=== PATIENT | male | born 1935 | race Caucasian/White ===

== ENCOUNTER 2016-05-28 08:38 | Inpatient (IN) | payer MEDICARE, OTHER ==
[2016-05-28] VITALS (12 sets, daily range): BP systolic 101–142; BP diastolic 63–81; PULSE 98–127; RESP 16–30; O2SAT 89–95
[~2016-05-28] VITALS: Ht 175.3 cm; Wt 75.2 kg
[~2016-05-28 08:38] MED LIST: AMLO5TAB2 PO; ASPI81TA3 PO; ATOR40TA69 PO; CARV6.25 PO; CLOP75TA28 PO; FURO40TA4 PO; HYDR-3938 PO; ISOS20TA7 PO
--- NOTE | 2016-05-28 08:38 | ED.REPORT ---
HPI-Dyspnea / Wheezing Date of Service May 28, 2016 ED Provider: Nasim Lozano DO 80 year old male with a history of CHF, COPD, CAD, NSTEMI, HTN, and sleep apnea presents to the ER via EMS due to acute on chronic shortness of breath onset just prior to arrival. Medics report that they found the patient in respiratory distress with O2 saturation in the low 80's, and tripoding at home. NTG and morphine given en route. Patient denies chest pain, fever, and chills. Associated productive cough for the past "couple days". Lately he also admits to decreased oral intake. He states that he gets recurrent "cedar allergies" annually around this time of year that elicit similar symptoms. Nursing Notes Stated Complaint: RESPIRATORY DISTRESS Nursing Notes Reviewed: Yes Allergies: Coded Allergies: povidone-iodine (Verified Allergy, Severe, Hives, 01/02/15) soap (Verified Allergy, Severe, Hives, 01/02/15) Contrast Media (Verified Adverse Reaction, Severe, 06/25/14) required dialysis to clear it. clonidine (Verified Adverse Reaction, Unknown, Dizziness, insomnia, pale, Depression, 06/25/14) Scheduled Amlodipine (Amlodipine) 5 Mg Tablet 5 MG PO BID Aspirin Chew (Aspirin Chew) 81 Mg Tab.chew 81 MG PO every other day Atorvastatin Calcium (Atorvastatin Calcium) 40 Mg Tablet 40 MG PO DAILY Carvedilol (Coreg) 6.25 Mg Tablet 3.125 MG PO DAILY Clopidogrel (Clopidogrel) 75 Mg Tablet 75 MG PO every other day Furosemide (Furosemide) 40 Mg Tablet 40 MG PO DAILY Hydralazine (Hydralazine) 10 Mg Tablet 25 MG PO TID Isosorbide DN (Isosorbide DN) 20 Mg Tablet 2 TAB PO BID Losartan Potassium (Losartan Potassium) 25 Mg Tablet 25 MG PO DAILY General Time Seen by MD: 08:38 Chief Complaint Shortness of breath Hx Obtained From: Patient, EMS Arrived By: Ambulance Sudden in Onset?: No Onset Occurred: Just prior to arrival Symptom Duration: Since onset Associated with: Reports: Cough, Denies: Chest pain, Fever Pertinent Negative: Pt denies other symptoms Context Related History: Reports: COPD, Congestive heart failure, Coronary artery disease Similar Sx Previous: Yes Risk Factors CAD Risk Stratification Hypertension Known CAD Risk factors reviewed Past Medical History Past Medical History NSTEMI (2013) Acute renal failure Heart murmur Heart burn Hemorrhoids Reports: COPD, Congestive heart failure, Diabetes mellitus, GERD, Hypertension Past Surgical History 2 stents Reports: Cataract surgery Reports: Tubal ligation Smoking History Former Smoker Social History Alcohol Use: Denies alcohol use Drug Use: Denies drug use Other Social History: Review of Systems Constitutional: Denies: Chills, Fever Respiratory: Reports: Prod cough, clear, Shortness of breath Cardiovascular: Denies: Chest pain Musculoskeletal: Denies: Back pain, Extremity pain, Neck pain Skin: Denies Diaphoresis Complete sys rev & neg: except as marked. Physical Exam Initial Vital Signs Vital Signs (First) Date Time Temp Pulse Resp B/P Pulse Ox O2 Delivery O2 Flow Rate FiO2 05/28/16 08:43 36.1 127 30 101/78 89 Nasal Cannula 10 05/28/16 09:04 30 Initial VS: Reviewed Head / Eyes: Atraumatic, Normocephalic Abdomen / GI: Soft, Non-tender, No guarding, No rebound, No distention Extremities: Vascular intact, Neuro intact, No swelling, No tenderness Skin: Warm, Dry, No cyanosis Neurologic: Alert, Oriented, Nonfocal Psychiatric: Mood/affect normal, Behavior normal, Normal thought content General/Constitutional: Awake, Alert, Well developed, Well nourished Neck: Atraumatic, Supple, No meningismus, Full range of motion, No swelling, Non-tender, No masses Neck Vascular: Positive: JVD moderate Respiratory / Chest: No wheezing, No stridor Rales / Rhonchi: Positive: Rales diffuse, Rhonchi diffuse Tachypneic. Heart Rate / Rhythm: Positive: Irreg irregular rhythm, Tachycardia Trace lower extremity edema, bilaterally. Interpretation & Diagnostics Lab Results Interpretation Result Diagram: 05/28/16 1003 05/28/16 1003 Test 05/28/16 10:03 White Blood Count 17.0th/mm3 (3.8-10.1) Red Blood Count 2.81mil/mm3 (4.40-5.80) Hemoglobin 9.0g/dL (13.8-17.2) Hematocrit 27.0% (41.0-50.0) Mean Corpuscular Volume 96.1fL (81-100) Mean Corpuscular Hemoglobin 32.0pg (27.0-35.0) Mean Corpuscular Hemoglobin Concent 33.3% (32.0-37.0) Red Cell Distribution Width 15.1% (12.3-15.4) Platelet Count 351bil/L (150-400) Neutrophils (%) (Auto) 87.6% (40-74) Lymphocytes (%) (Auto) 2.6% (14-46) Monocytes (%) (Auto) 9.5% (4-12) Eosinophils (%) (Auto) 0% (0-5) Basophils (%) (Auto) 0.1% (0-3) Prothrombin Time 12.0sec (8.1-12.5) Prothromb Time International Ratio 1.12ratio Sodium Level 137mEq/L (134-144) Potassium Level 4.6mEq/L (3.5-5.2) Chloride Level 102mEq/L (97-108) Carbon Dioxide Level 15mmol/L (18-29) Blood Urea Nitrogen 70mg/dL (8-27) Creatinine 2.70mg/dL (0.76-1.27) Estimat Glomerular Filtration Rate 24mL/min (>59) Glucose Level 190mg/dL (60-99) Calcium Level 9.1mg/dL (8.5-10.1) Total Bilirubin 0.9mg/dL (0.0-1.2) Aspartate Amino Transf (AST/SGOT) 16U/L (0-50) Alanine Aminotransferase (ALT/SGPT) 11U/L (0-44) Alkaline Phosphatase 59U/L (25-160) Troponin T 0.031ug/L (0.0-0.011) Pro-B-Type Natriuretic Peptide 39790bc/mL (0-486) Total Protein 7.1g/dL (6.4-8.4) Albumin 4.0g/dL (3.4-5.0) ECG Interpretation ECG Interpretation: Atrial fibrillation, rate 124 LVH 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 Cardiomegaly and moderate vascular congestion may represent pulmonary edema. 2. Prominent perihilar airspace disease (left greater than right) is suspicious for pneumonia. However, this appearance may be related to pulmonary edema. Please correlate clinically. 3. Small bilateral effusions and associated basilar atelectasis. Dictated by: Jeffrey Valle M.D. on 05/28/2016 at 8:21 Approved by: Jeffrey Valle M.D. on 05/28/2016 at 8:23 View: Portable, 1 view Interpretation / Wet Read by: Interpret - Radiologist Re-Eval/Medical Decision Med Decision/Clinical Course Hypoxic respiratory failure likely combination of pneumonia and CHF and COPD. Patient is placed on BiPAP shortly after arrival to the ER as he is severely tachypneic and hypoxic. He had good symptomatic relief. He is not retaining CO2 significantly. Labs suggest that he is fluid overloaded and may also have pneumonia. Will admit to ICU. Source of Hx: Old records Re-Evaluation/Progress #1: Time of Eval: 09:04 Re-Evaluation/Progress Note: Patient's is now present at bedside. Patient is stabilized on BIPAP. Re-Evaluation/Progress #2: Time of Eval: 09:49 Patient Status: Condition improved Re-Evaluation/Progress Note: Patient reports improved symptoms with BIPAP. Re-Evaluation/Progress #3: Time of Eval: 11:08 Re-Evaluation/Progress Note: Discussed lab and imaging results and need for admission. Patient is amenable to the plan. All other questions addressed. CODE STATUS: DNAR, DNI, ok with BIPAP Consultation : Referral / Consult Name: Trace Sanchez MD Consulted With: Hospitalist Call Returned at: 11:05 Cell Tuber Hand: Agrees with eval, Agrees with plan, Accepts admit Counseled Regarding: Diagnosis, Lab results, Need for admission Discharge & Departure Impression: Primary Impression: Respiratory failure Additional Impression: CHF (congestive heart failure) Disposition: ADMITTED TO HOSPITAL Discharge Condition All VS Reviewed: Yes Condition: Improved Referrals: New Aceves MD (PCP) Crit Care Except Billable Proc Time Spent: 30-74 minutes Services Performed: Patient management by me, Time spent at bedside, Reviewing test results Critical Care Notes: See MDM Scribe Attestation Portions of this note were transcribed by Samir Farris. I, Dr. Lozano, personally performed the history, physical exam and medical decision-making; I reviewed and confirmed the accuracy of the information in the transcribed note. Signed by: Yanira Rosario, 05/28/2016 and 11:09 copies to: New Aceves MD, Timothy S DO May 28, 2016 08:38 SAMIR FARRIS May 28, 2016 08:47
[2016-05-28] MEDS ORDERED: Nitroglycerin 2% 1 Gm Ointment TOPICAL ONE (09:05)
[2016-05-28] MEDS ORDERED: Diltiazem 5 mg/mL 5 mL Inj IVPUSH ONE (09:05)
--- NOTE | 2016-05-28 09:24 | DRSVH ---
PROCEDURE: X-RAY CHEST ONE VIEW, PORTABLE ([id number]) INDICATIONS: dyspnea TECHNIQUE: One view of the chest was acquired. COMPARISON: [facility], CR, XR CHEST 2VW, 01/05/2015, 10:30. [facility], CR , XR CHEST 1VW (PORTABLE), 01/04/2015, 22:13. FINDINGS: Surgical changes and devices: None. Lungs and pleura: There are low lung volumes. Extensive airspace disease is identified throughout jacob th lungs that is more prominent within the left upper lobe and right perihilar region. Blunting of t he costophrenic angles is present with partial obscuration of the bilateral diaphragms. No definite pneumothorax is appreciated. Mediastinum: Mediastinal contours appear normal. Heart size is partially obscured by overlying airs pace disease. However, the heart appears to be enlarged. There is aortic atherosclerosis. Bones and chest wall: No suspicious bony lesions. An old left lateral rib fracture is unchanged. T here is mild dextroconvex curvature of the thoracic spine. There may be a calcified granuloma within the liver. Overlying soft tissues appear unremarkable. IMPRESSION: 1. Cardiomegaly and moderate vascular congestion may represent pulmonary edema. 2. Prominent perihilar airspace disease (left greater than right) is suspicious for pneumonia. English jacquie, this appearance may be related to pulmonary edema. Please correlate clinically. 3. Small bilateral effusions and associated basilar atelectasis. Dictated by: Jeffrey Valle M.D. on 05/28/2016 at 8:21 Approved by: Jeffrey Valle M.D. on 05/28/2016 at 8:23
--- NOTE | 2016-05-28 09:47 | ABG ---
DateTimeAnalyzed 09:44:00 -_ pH ____7.357 - 7.350 7.450 pCO2 ___35.5__ -mmHg 35.0 45.0 pO2 ___63.8__ -mmHg 69.0 116 HCO3- ___19.4__ -mmol/L 22.0 26.0 ABE ___-5.0__ -mmol/L -2.0 2.0 tHb ____9.0__ -g/dL O2Hb ___88.3__ -% COHb ____1.8__ -% MetHb ____1.2__ -% sO2 ___91.0__ -% 25.0 FIO2 ___30.0__ -% CPAP ___10.0__ -cmH2O PEEP ____5.0__ -cmH2O Drawn By JJ - Date/Time Notified____ 09:47:00 -_ Spontaneous_RR ___16.0__ -b/min Oxygen Device 1 ____BIPAP - Notified By JJ - Notified Whom DR OKELLEY - B 758 -mmHg tO2 ___11.2__ -Vol% Trace test _Positive -
[2016-05-28 10:14] LABS: EOSINOPHILS % (AUTO) 0 % (0-5)
[2016-05-28 10:18] LABS: BASOPHILS % (AUTO) 0.1 % (0-3); MONOCYTES % (AUTO) 9.5 % (4-12); Mean Corpuscular Volume 96.1 fL (81-100); NEUTROPHILS % (AUTO) 87.6 % (40-74); Platelet Count 351 bil/L (150-400)
[2016-05-28 10:32] LABS: INR 1.12 ratio
[2016-05-28] MEDS ORDERED: LOSA25TA21 PO (10:39)
[2016-05-28] MEDS ORDERED: cefTRIAXone Inj 2,000 MG in Dextrose 5% Minibag Plus 50 ML IV ONE (10:40)
[2016-05-28] MEDS ORDERED: Azithromycin Inj 500 MG in Dextrose 5% w/Vial Mate 250 ML IV ONE (10:40)
[2016-05-28 10:58] LABS: TROPONIN T 0.031 ug/L (0.0-0.011)
[2016-05-28] MEDS ORDERED: Ondansetron 2 mg/mL 2 mL Inj IVPUSH PRN ×2 (11:10→12:20)
[2016-05-28] MEDS ORDERED: Alum-Mag Hydrox-Simeth 30 mL Suspension PO PRN ×2 (11:10→12:20)
[2016-05-28] MEDS ORDERED: Furosemide 10 mg/mL 4 mL Inj IVPUSH ONE (11:20)
[2016-05-28] MEDS ORDERED: Senna-Docusate 8.6-50 mg Tablet PO PRN (12:20)
[2016-05-28] MEDS ORDERED: Polyethylene Glycol (PEG) 17 Gm Powder PO PRN (12:20)
[2016-05-28] MEDS: cefTRIAXone Inj 2,000 MG in Dextrose 5% Minibag Plus 50 ML IV SCH (12:20)
[2016-05-28 13:30] LABS: Magnesium 2.6 mg/dL (1.6-2.6)
--- NOTE | 2016-05-28 14:46 | DRSVH ---
[facility] [address] [place] [address] Echocardiogram Report Name: NOAH FERRARO DStudy Date: 05/28/2016 Height: 69 in Hospital Exam Location: [facility] Weight: 170 lb Gender: Male BSA: 1.9 m2 : 1935 Age: 80 yrs BP: 133/77 mmHg Reason For Study: Dyspnea Ordering Physician[facility] By: Sergey Moctezuma Referring Physician: CEZAR MATTSON Interpretation Summary The left ventricle is borderline dilated. The ejection fraction is estimated to be 20-25%. There is moderate to severe global hypokinesis of the left ventricle. There is apical severe hypokinesis. The left atrium is severely dilated. The mitral valve leaflets are moderately calcified. The mitral valve mean gradient is 9 mmHg. There is moderate to severe mitral regurgitation. The aortic valve is moderately calcified. Leaflet mobility is moderate to severely reduced. The calculated aortic valve area is 0.85 cm2. There is mild aortic regurgitation. There is moderate tricuspid regurgitation. The right ventricular systolic pressure is estimated at 63 mmHg assuming a right atrial pressure of 15 mm Hg. There are moderate-sized bilateral pleural effusions noted. Compared to prior echo report on 2016, changes are noted. Procedure: A two-dimensional transthoracic echocardiogram with color flow and Doppler was performed. The study quality was technically adequate. Comparison is made with the echocardiogram of 09/04/15. The patient was in atrial fibrillation with heart rates between 89-124 bpm during the exam. Left Ventricle: The left ventricle is borderline dilated. There is mild concentric left ventricular hypertrophy. The ejection fraction is estimated to be 20-25%. Compared to the prior exam, left ventricular function is significantly decreased. There is moderate to severe global hypokinesis of the left ventricle. There is apical severe hypokinesis. Diastolic function could not be accurately assessed due to atrial fibrillation. Atria: The left atrium is severely dilated. The right atrium is moderately dilated. The interatrial septum is intact with no evidence for an atrial septal defect. Mitral Valve: The mitral valve leaflets are moderately calcified. There is moderate to severe mitral annular calcification. The mitral valve mean gradient is 9 mmHg. There is moderate to severe mitral regurgitation. Compared to the prior echo study, there has been an increase in the severity of mitral regurgitation. Aortic Valve: The aortic valve is trileaflet. The aortic valve is moderately calcified. Leaflet mobility is moderate to severely reduced. The peak aortic velocity is 2.8 m/sec. The aortic valve mean gradient is 22 mmHg. The calculated aortic valve area is 0.85 cm2. Compared to the prior echo study, there has been an increase in the severity of aortic stenosis. There is mild aortic regurgitation. Tricuspid Valve: The tricuspid valve is normal. There is moderate tricuspid regurgitation. The right ventricular systolic pressure is estimated at 63 mmHg assuming a right atrial pressure of 15 mm Hg. Pulmonic Valve: The pulmonic valve is not well seen, but is grossly normal. There is a trace or physiologic amount of pulmonic regurgitation. Great Vessels: The aortic root is normal size. The ascending aorta is mildly enlarged. The pulmonary artery is normal size. The IVC is dilated (diameter is greater than 2.1 cm) and it collapses less than 50% with a sniff. This suggests a high right atrial pressure of 15 mm Hg. Pericardium/ Pleura There is no pericardial effusion. There are moderate- sized bilateral pleural effusions noted. MMode/2D Measurements & Calculations LVIDd: 5.7 cm RA long axis: 6.1 cm LVOT diam LVIDs: 4.9 cm LA A2 area: 33.3 cm FS: 13.6 % LA A4 area: 40.6 cm RA area: 24.2 cm Ao root diam EPSS: 2.1 cm LA length (vol): 6.4 cm RA vol: 81.6 ml IVSd: 1.1 cm LA vol: 179.3 ml RA : 42.3 ml/m2 asc Aorta LVPWd: 1.3 cm LA vol index Diam: 3.6 cm IVC diam: 2.5 cm EDV(MOD-sp2) LV lamb. diameter/BSA LV sys. diameter/BSA RVD1 (basal) (cm/m^2): 2.9 (cm/m^2): 2.5 : 4.4 cm ESV(MOD-sp2) EF(MOD-sp2) RVD2 (mid) TAPSE: 1.1 cm : 2.7 cm Doppler Measurements & Calculations Ao V2 max MV E max fred TR max fred MV V2 mean : 282.0 cm/sec : 214.5 cm/sec : 345.5 cm/sec : 132.8 cm/sec Ao max PG TR max PG MV mean P.6 mmHg : 32.0 mmHg MVA(VTI): 1.3 cm : 48.1 mmHg MV V2 VTI: 36.3 cm Ao mean PG MR ERO: 0.19 cm2 : 21.5 mmHg LVOT Max Fred : 63.4 cm/sec MADELIN(I,D) : 0.85 cm sev ratio Ao V2 mean LV V1 max PG MR flow rate MADELIN indexed to BSA : 224.7 cm/sec : 98.2 cm3/sec (cm^2/m^2): 0.44 Ao V2 VTI LV V1 VTI: 13.3 cmMR PISA radius MADELIN(V,D) : 0.82 2m Electronically signed by: Oniel Odonnell on Reading Physician:05/28/2016 02:45 PM
--- NOTE | 2016-05-28 14:55 | PCM.HPMED ---
Subjective Date of Service May 28, 2016 Primary Provider: Admitting Physician: Trace Sanchez MD Primary Care Physician: New Aceves MD Attending Physician: Trace Sanchez MD Admit Status: From the Emergency Department, Full Admit, Critical Care Chief Complaint: Acute shortness of breath. History of Present Illness: Patient with a history of COPD and possible CHF presents with progressive dyspnea over 4 days. No chest pain, or leg edema. Some recent allergies and rhinorrhea. No fevers, chills, sore throat, or cough. No palpitations or orthopnea. Chest xray concerning for pulmonary edema as well as a possible infiltrate, In the ER he was given a dose of IV lasix as well as nitro paste. He arrives to unit on BiPAP. Has BITA as well. The patient denies any chest pain. He has had some recent rhinorrhea but attributes this to his allergies which are always worse this time of year. He also notes a 65 year history of smoking although he is not a smoker at this point. He has never formally been diagnosed with COPD. He has noted some wheezing recently. He denies any leg edema recently. No overt orthopnea. No recent infectious symptoms such as a cough or fevers or chills. He has a stated history of possible CHF although further information is not available. He denies history of heart attack from his knowledge. No recent palpitations. He also denies exertional chest pain recently. He has been however quite short of breath with exertion. Review of Systems: All else reviewed and otherwise negative except as noted on History and physical. Allergies Coded Allergies: povidone-iodine (Verified Allergy, Severe, Hives, 01/02/15) soap (Verified Allergy, Severe, Hives, 01/02/15) Contrast Media (Verified Adverse Reaction, Severe, 06/25/14) required dialysis to clear it. clonidine (Verified Adverse Reaction, Unknown, Dizziness, insomnia, pale, Depression, 06/25/14) Home Medications Amlodipine (Amlodipine) 5 Mg Tablet 5 MG PO BID Aspirin Chew (Aspirin Chew) 81 Mg Tab.chew 81 MG PO every other day Atorvastatin Calcium (Atorvastatin Calcium) 40 Mg Tablet 40 MG PO DAILY Carvedilol (Coreg) 6.25 Mg Tablet 3.125 MG PO DAILY Clopidogrel (Clopidogrel) 75 Mg Tablet 75 MG PO every other day Furosemide (Furosemide) 40 Mg Tablet 40 MG PO DAILY Hydralazine (Hydralazine) 10 Mg Tablet 25 MG PO TID Isosorbide DN (Isosorbide DN) 20 Mg Tablet 2 TAB PO BID Losartan Potassium (Losartan Potassium) 25 Mg Tablet 25 MG PO DAILY PMH 1. Congestive heart failure 2. Chronic obstructive pulmonary disease 3. Remote history of pneumonia 4. CKD 3 5. Diabetes mellitus 2, diet-controlled 6. GERD 7. Hypertension 8. Obstructive sleep apnea. 9. Remote history of transient acute renal failure, resolved. Surgical History 1. Cataract surgery. 2. Cardiac PCI with 2 stents. Family History Positive for CAD. Social History Occupation: retired. Hx Alcohol Use: No Hx Substance Use: No Hx Tobacco Use: Yes Smoking Status: Former Smoker Living Arrangement: with Family Exam Vital Signs Vital Sign - Last Date Time Temp Pulse Resp B/P Pulse Ox O2 Delivery O2 Flow Rate FiO2 05/28/16 12:47 Supplement Oxygen 05/28/16 12:44 36.5 106 18 131/74 94 30 05/28/16 11:15 10 Exam Oriented 3. No distress. Fluent speech. Normal affect. Normal skull. Normal nose and ears. Anicteric sclera, symmetric pupils Oropharynx is unremarkable, no facial droop. Neck is supple, normal thyroid. No adenopathy. Lungs are clear,.The patient is on BiPAP and is comfortable on BiPAP. He does have some expiratory wheezing noted. Heart is regular without murmur gallop or rub. Abdomen soft, nondistended or tender. Extremities are free of pedal edema. Good radial and pedal pulses. Skin is free of rash, lesions. No petechiae or ecchymosis. Joints are grossly normal. Cranial nerves are grossly normal. Motor strength is normal in all extremities. Normal muscular tone. Lab and Diagnostics Result Diagram: 05/28/16 1003 05/28/16 1003 X-Rays, CTs and MRIs CXR: IMPRESSION: 1. Cardiomegaly and moderate vascular congestion may represent pulmonary edema. 2. Prominent perihilar airspace disease (left greater than right) is suspicious for pneumonia. However, this appearance may be related to pulmonary edema. Please correlate clinically. 3. Small bilateral effusions and associated basilar atelectasis. Dictated by: Jeffrey Valle M.D. on 05/28/2016 at 8:21 Approved by: Jeffrey Valle M.D. on 05/28/2016 at 8:23 12-lead ECG Atrial fibrillation with RVR, anterior and inferior Q waves. No St segment changes. Assessment & Plan 1. Acute hypoxic respiratory failure, POA. Start BiPAP. Etiology of this appears to be pulmonary edema which may relate to heart failure which is not further characterized. The patient also has a very high likelihood of COPD with his extensive smoking history which may have been exacerbated recently by his seasonal allergies. We will continue BiPAP as needed and will monitor him clinically. 2. Acute heart failure, unclear type, POA. Nitropaste, and IV diuresis. ECHO and rule out NSTEMI with serial troponins. Chest x-ray does indicate pulmonary edema. A 2-D echo will assess his ventricular function or not he has systolic failure. We will recommend she is medical therapy as needed to provide beta- blockade and afterload reduction. 3. Possible Community acquired pneumonia, POA. IV ceftriaxone and azithromycin. Oxygen., We will obtain blood cultures 2 and follow. Full code, discussed at time of admission. Inpatient status, 2 nights stay anticipated. Pain Evaluation: Adequate Pain Control Resuscitation Status: CPR: Attempt Resuscitation Time spent 40 min Trace Sanchez MD May 28, 2016 14:55
[2016-05-28] MEDS: Famotidine Inj 50 ML IV SCH (15:53)
--- NOTE | 2016-05-28 18:32 | NUR ---
pt arrives/bipap/echo/diuresis 1200 pt arrives. 1300 Echo completed, EF 20%. Lasix given with 250 of concentrated urine out on this shift. Pt tolerating Bipap well, desats to low 80's if it is off even briefly for oral care.
--- NOTE | 2016-05-28 23:34 | NUR ---
Cardiac/Respiratory Assumed patient care from [id number]. Pt on bipap fio2 0.30, dyspneic on exertion and at rest, briefly HR up in the 120's afib on exertion. Pt takes coreg for rate control at home. Notified Dr. Koby MD ordered to continue med. Pt report given to THERESE WARD.
[2016-05-29] VITALS (13 sets, daily range): BP systolic 116–135; BP diastolic 60–90; PULSE 89–128; RESP 1–26; O2SAT 88–97
--- NOTE | 2016-05-29 05:35 | NUR ---
Uneventful night for pt. IVF SL. Bipap remains at 30%, dyspnea with exertion. HR is a-fib with in the low 100's. HR does increase to the 140-150's with small amounts of activity. Pt is a/o x3, moving all extremities, able to make needs known. Using call light appropriately. Vital signs stable. Will cont. to monitor pt closely.
--- NOTE | 2016-05-29 07:33 | PCM.PNMED ---
Subjective Date of Service May 29, 2016 Subjective On BiPAP all night. Still dyspneic and wheezing. Mostly non productive cough. No fevers, chest pain or abdomen pain. No diarrhea. Positive rhinorrhea. Atrial fib in the 120's. No overnight events. Exam Vital Signs Vital Sign - Last Date Time Temp Pulse Resp B/P Pulse Ox O2 Delivery O2 Flow Rate FiO2 05/29/16 05:30 124 17 132/90 91 30 05/29/16 04:30 36.5 BiPAP 05/28/16 11:15 10 Intake and Output 05/28/16 05/28/16 05/29/16 Cumulative From/Thru 15:00 23:00 07:00 05/28/16 08:43 - 05/29/16 06:12 Intake Total 490 ml 0 ml 490 ml Output Total 250 ml 550 ml 800 ml Balance 240 ml -550 ml -310 ml Intake Oral 0 ml 0 ml 0 ml IV Total 490 ml 490 ml Output Urine Total 250 ml 550 ml 800 ml Exam Alert and oriented. No distress, fluent speech. Anicteric sclera Lungs with 2/4 breath sounds, expiratory wheezing. Rhonchi. Heart irregular no murmur Flat abdomen No edema IVs and Medications Medications Reviewed: Medications were reviewed in detail Lab and Diagnostics Result Diagram: 05/28/16 1003 05/28/16 1003 X-Rays, CTs and MRIs CXR: IMPRESSION: 1. Cardiomegaly and moderate vascular congestion may represent pulmonary edema. 2. Prominent perihilar airspace disease (left greater than right) is suspicious for pneumonia. However, this appearance may be related to pulmonary edema. Please correlate clinically. 3. Small bilateral effusions and associated basilar atelectasis. Dictated by: Jeffrey Valle M.D. on 05/28/2016 at 8:21 Approved by: Jeffrey Valle M.D. on 05/28/2016 at 8:23 12-lead ECG Atrial fibrillation with RVR, anterior and inferior Q waves. No St segment changes. Cardiac Echo Impressions nterpretation Summary The left ventricle is borderline dilated. The ejection fraction is estimated to be 20-25%. There is moderate to severe global hypokinesis of the left ventricle. There is apical severe hypokinesis. The left atrium is severely dilated. The mitral valve leaflets are moderately calcified. The mitral valve mean gradient is 9 mmHg. There is moderate to severe mitral regurgitation. The aortic valve is moderately calcified. Leaflet mobility is moderate to severely reduced. The calculated aortic valve area is 0.85 cm2. There is mild aortic regurgitation. There is moderate tricuspid regurgitation. The right ventricular systolic pressure is estimated at 63 mmHg assuming a right atrial pressure of 15 mm Hg. There are moderate-sized bilateral pleural effusions noted. Compared to prior echo report on 2016, changes are noted. Assessment & Plan 1. Acute hypoxic respiratory failure, POA and stable. Start BiPAP. Will wean today as able. 2. Acute systlic heart failure, POA and stable. Nitropaste, and IV diuresis. ECHO reveals EF 25 % . Will continue lasix and add lisinopril and low dose metoprolol. 3. Community acquired pneumonia, POA and stable. IV ceftriaxone and azithromycin. Oxygen., 4. Possible COPD exacerbation (65 pack years), POA and stable. Add solumedrol and duonebs. Repeat CXR this AM. 5. Atrial fibrillation with rapid response, POA and stable. Rate control with metoprolol and check TSH. 6. Lactic acidosis, POA. Resolved. Full code Inpatient status, 2 nights stay anticipated. Pain Evaluation: Adequate Pain Control Resuscitation Status: CPR: Attempt Resuscitation Trace Sanchez MD May 29, 2016 07:33
[2016-05-29] MEDS: Famotidine Inj 50 ML IV SCH (07:43)
[2016-05-29] MEDS: MethylprednisoLONE Sodium Succinate 40 mg/mL Inj IVPUSH SCH ×3 (07:49→20:17)
[2016-05-29] MEDS: Furosemide 10 mg/mL 4 mL Inj IVPUSH SCH ×2 (07:50→20:17)
[2016-05-29] MEDS: Azithromycin Inj 500 MG in Dextrose 5% w/Vial Mate 250 ML IV SCH (07:58)
[2016-05-29 08:06] LABS: Mean Corpuscular Hemoglobin 31.2 pg (27.0-35.0); Mean Corpuscular Volume 96.6 fL (81-100)
--- NOTE | 2016-05-29 09:40 | DRSVH ---
PROCEDURE: X-RAY CHEST ONE VIEW ([id number]) INDICATIONS: dyspneA TECHNIQUE: One view of the chest was acquired. COMPARISON: [facility], CR, XR CHEST 1VW (PORTABLE), 05/28/2016, 8:57. FINDINGS: Surgical changes and devices: None. Lungs and pleura: Diffuse, widespread bilateral pulmonary interstitial and air space opacities are pr esent similar to prior examination. Trace basilar pleural effusions. No pneumothorax. Mediastinum: Mediastinal contours appear normal. Heart size is enlarged. Bones and chest wall: No suspicious bony lesions. Overlying soft tissues appear unremarkable. IMPRESSION: 1. Edema and/or diffuse bilateral pneumonia not significantly changed. 2. Trace pleural effusions. Dictated by: Nick Gomez RRA Interpreted: Arelis Levy MD on 05/29/2016 at 9:39 Transcribed by: ABIGAIL on 05/29/2016 at 9:40 Approved by: Arelis Levy M.D. on 05/29/2016 at 22:16
--- NOTE | 2016-05-29 09:54 | NUR ---
NUTRITION ASSESSMENT: ASSESS: Pt is an 80yo M admitted to CCU for respiratory distress. He is currently on BIPAP. He has been NPOx1 day due to pt being on BIPAP. PMHX: CHF, COPD, pneumonia, CKD 3, DM, GERD, HTN, BITA LABS: Reviewed. CO2 17, BUN 79, Metal Machine Setter 2.80, Glu 165, Alb 4.0 MEDS: Reviewed. Lasix GI: 0 BM SKIN: Angus 18, no major issues CURRENT WTS: 78.5kg, BMI 25.6kg/m2, admit wt 77.27kg DIET: NPOx1 day EST. NEEDS: CKD stg 3 Kcals: 1965-2355kcal/day (25-30kcal/kg) Pro: 65-80g/day (0.8-1.0g/kg) NUTRITION DIAGNOSIS: 1.) Inadequate oral intake related to decreased ability to consume sufficient energy as evidenced by current NPO status NUTRITION INTERVENTION: 1.) Will monitor NPO status and respiratory status. Recommend advance diet when medically appropriate MONITOR / EVAL: NPO, BIPAP, wt, GI, POC, nutrition status. Will continue to monitor per high nutrition risk guidelines.
[2016-05-29] MEDS: Albuterol-Ipratropium 3 mL Inhalation Solution NEB SCH ×3 (12:13→20:54)
[2016-05-29] MEDS: cefTRIAXone Inj 2,000 MG in Dextrose 5% Minibag Plus 50 ML IV SCH (12:47)
--- NOTE | 2016-05-29 14:31 | NUR ---
Social Work Note - Initial Assessment: D/A: See Initial Assessment, the Pt is an 80 y/o male that was admitted for respiratory failure on bipap. Readmission Risk Score 4. The Pt's PCP is MD New Aceves and his primary insurance is Medicare with [employer] supplement, no LTC. EMR reviewed, JOHAN met with the Pt and the Pt's to explain role and discuss discharge planning. JOHAN telephone number written on [employer] board. The Pt lives independently with his in a two story home on [address], no concerns with steps reported. The Pt does not have an Advanced Directive, paperwork provided. The Pt continues to drive, does not use any DME, and has no HH/SNF history. The Pt and family deny any needs at this time. SW to follow if needs arise. P: The Pt is not ready for discharge, will likely discharge home with providing POV transportation when medically stable. The Pt and family deny any needs at this time. SW to follow if needs arise. AKIRA John Radiology Orderly Addendum: 05/29/16 at 1435 by KIMBERLEY CALIXTO SS Amended: Links added.
--- NOTE | 2016-05-29 16:05 | NUR ---
Bipap dependent Patient becomes very short of breath when taken off the bipap. Have only removed for medications. Patient also desaturates and becomes tachycardic with activity even on the bipap. At rest patient does very well. Vital signs stable. Patient reports he does shuffle and move around frequently in bed as to not stay in one position. at bedside entire day and updated on plan of care. Continue with IV antibiotics and steroids. Patient now an IMCU status, per orders.
[2016-05-29] MEDS ORDERED: Glucose 40% Oral Gel 15 Gm Tube PO PRN (18:45)
[2016-05-29] MEDS: Insulin LISPRO 300 Unit/3 mL Inj SUBQ SCH (21:19)
[2016-05-30] VITALS (14 sets, daily range): BP systolic 111–130; BP diastolic 57–79; PULSE 92–123; RESP 14–20; O2SAT 90–98
[2016-05-30] MEDS: Albuterol-Ipratropium 3 mL Inhalation Solution NEB SCH ×6 (00:34→20:14)
[2016-05-30] MEDS: MethylprednisoLONE Sodium Succinate 40 mg/mL Inj IVPUSH SCH ×4 (01:23→18:54)
[2016-05-30 02:07] LABS: Free Thyroxine Index 2.2 (1.2-4.9)
--- NOTE | 2016-05-30 05:16 | NUR ---
Bi-Pap/IV/Sugar ON BiPap-35% FiO2, 01/21. NS @ TKO A&O , using call light sparingly during night. Blood sugar 203, 168, HS sliding scale 1 unit lispro Telemetry:A-Fib 90-100's
[2016-05-30] MEDS: Azithromycin Inj 500 MG in Dextrose 5% w/Vial Mate 250 ML IV SCH (08:01)
[2016-05-30] MEDS: Famotidine Inj 50 ML IV SCH (08:01)
[2016-05-30] MEDS: Insulin LISPRO 300 Unit/3 mL Inj SUBQ SCH ×4 (08:02→21:40)
[2016-05-30] MEDS: Furosemide 10 mg/mL 4 mL Inj IVPUSH SCH (08:03)
[2016-05-30] MEDS ORDERED: Insulin GLARgine 100 Unit/mL Syringe SUBQ ONE ×2 (08:30→10:50)
[2016-05-30] MEDS ORDERED: Furosemide 10 mg/mL 4 mL Inj IVPUSH SCH (08:30)
--- NOTE | 2016-05-30 08:45 | PCM.PNMED ---
Subjective Date of Service May 30, 2016 Subjective Patient feels he is improving. He was only off BiPAP 1 hour yesterday. He denies chest pain, palpitations, or cough. No fevers or chills. No abdominal pain nausea or diarrhea. No overnight events. Exam Vital Signs Vital Sign - Last Date Time Temp Pulse Resp B/P Pulse Ox O2 Delivery O2 Flow Rate FiO2 05/30/16 05:11 116 05/30/16 04:29 19 111/57 93 35 05/30/16 03:59 36.5 BiPAP 05/28/16 11:15 10 Intake and Output 05/29/16 05/29/16 05/30/16 Cumulative From/Thru 15:00 23:00 07:00 05/28/16 08:43 - 05/30/16 06:14 Intake Total 426 ml 112 ml 1028 ml Output Total 1200 ml 700 ml 2700 ml Balance -774 ml -588 ml -1672 ml Intake Oral 0 ml IV Total 426 ml 112 ml 1028 ml Output Urine Total 1200 ml 700 ml 2700 ml Exam Alert and oriented 3, no distress. Fluent speech. He is on BiPAP. Anicteric sclera. Lungs are clear with normal rate and effort Heart is regular without murmur gallop or rub Abdomen soft nontender, flat Extremities are free of edema. Skin is free of rash or lesions. IVs and Medications Medications Reviewed: Medications were reviewed in detail Lab and Diagnostics Result Diagram: 05/29/16 0755 05/29/16 0755 X-Rays, CTs and MRIs CXR: IMPRESSION: 1. Cardiomegaly and moderate vascular congestion may represent pulmonary edema. 2. Prominent perihilar airspace disease (left greater than right) is suspicious for pneumonia. However, this appearance may be related to pulmonary edema. Please correlate clinically. 3. Small bilateral effusions and associated basilar atelectasis. Dictated by: Jeffrey Valle M.D. on 05/28/2016 at 8:21 Approved by: Jeffrey Valle M.D. on 05/28/2016 at 8:23 12-lead ECG Atrial fibrillation with RVR, anterior and inferior Q waves. No St segment changes. Cardiac Echo Impressions nterpretation Summary The left ventricle is borderline dilated. The ejection fraction is estimated to be 20-25%. There is moderate to severe global hypokinesis of the left ventricle. There is apical severe hypokinesis. The left atrium is severely dilated. The mitral valve leaflets are moderately calcified. The mitral valve mean gradient is 9 mmHg. There is moderate to severe mitral regurgitation. The aortic valve is moderately calcified. Leaflet mobility is moderate to severely reduced. The calculated aortic valve area is 0.85 cm2. There is mild aortic regurgitation. There is moderate tricuspid regurgitation. The right ventricular systolic pressure is estimated at 63 mmHg assuming a right atrial pressure of 15 mm Hg. There are moderate-sized bilateral pleural effusions noted. Compared to prior echo report on 2016, changes are noted. Assessment & Plan #. Acute hypoxic respiratory failure, POA. Start BiPAP. Etiology of this appears to be pulmonary edema which may relate to heart failure which is not further characterized. The patient also has a very high likelihood of COPD with his extensive smoking history which may have been exacerbated recently by his seasonal allergies. We will continue BiPAP as needed and will monitor him clinically. We will continue to use BiPAP as needed will give him break today and see how long he can stay off without getting dyspneic and fatigued. I believe the primary cause of this is acute systolic heart failure and secondary contributor may be COPD exacerbation. #. Acute systolic heart failure, unclear type, POA. Nitropaste, and IV diuresis. ECHO and rule out NSTEMI with serial troponins. Chest x-ray does indicate pulmonary edema. A 2-D echo will assess his ventricular function or not he has systolic failure. Repeat chest x-ray. Yesterday's x-ray indicated pulmonary edema. I's and O's indicate a reasonable diuresis but it could be better. We will increase the furosemide from 40-60 IV every 12. We will reevaluate his creatinine today. #. Probable COPD exacerbation, POA. We will continue IV steroids and bronchodilators. #. Probable acute renal failure with a component of chronic kidney disease stage III. POA. We will reassess creatinine today and continue to watch while he is being diurese #. Diabetes mellitus 2, POA. Patient does have mild hyperglycemia. Lantus 5 now and then Lantus 5 daily at bedtime. U correctional lispro. Full code, discussed at time of admission. Inpatient status, over 2 nights stay anticipated. Resuscitation Status: CPR: Attempt Resuscitation Trace Sanchez MD May 30, 2016 08:45
[2016-05-30 08:56] LABS: Mean Corpuscular Hemoglobin 31.3 pg (27.0-35.0); Mean Corpuscular Volume 97.3 fL (81-100)
[2016-05-30] MEDS ORDERED: Furosemide 10 mg/mL 2 mL Inj IV ONE (09:35)
--- NOTE | 2016-05-30 11:08 | NUR ---
Bipap Pt taken of bipap t 1050 for trial. Oxymask at 4L plced. At 1105 pt states no SOB and sats on oxymask 94%. Tolerating well. Will continue to monitor. Addendum: 05/30/16 at 1212 by BONI DRIVER RN 1200 Pt stable at 94% on oxymask 4LNC. No c/o SOB. notified. to order diet.
--- NOTE | 2016-05-30 14:57 | DRSVH ---
PROCEDURE: X-RAY CHEST ONE VIEW, PORTABLE ([id number]) INDICATIONS: dyspnea TECHNIQUE: One view of the chest was acquired. COMPARISON: [facility], CR, XR CHEST 1VW, 05/29/2016, 8:02. [facility], CR, XR CHEST 1VW (PORTABLE), 05/28/2016, 8:57. FINDINGS: Surgical changes and devices: None. Lungs and pleura: Diffuse, widespread bilateral pulmonary interstitial and air space opacities are p resent which have decreased from prior exam. Small pleural effusions redemonstrated. No pneumothora x. Mediastinum: Mediastinal contours appear normal. Heart size is enlarged. Bones and chest wall: No suspicious bony lesions. Overlying soft tissues appear unremarkable. IMPRESSION: Resolving edema and/or pneumonia. Dictated by: Nick Gomez RRA Interpreted: Khushboo Yanes MD on 05/30/2016 at 14:56 Transcribed by: YESI on 05/30/2016 at 14:57 Approved by: Khushboo Yanes MD, PhD on 05/30/2016 at 16:48
--- NOTE | 2016-05-30 15:48 | NUR ---
MOSHE signed @ [id number]
--- NOTE | 2016-05-30 16:54 | NUR ---
HR MD deborah mckeon and notified that HR has consistently been afib 110-120s today with very little activity. HR 125 with transfer from bed to chair for dinner. Denies chest pain or SOB. Sats remain stable on oxymask at 4L. Will continue to monitor. Addendum: 05/30/16 at 1746 by BONI DRIVER RN to increase BID lopressor dose and monitor. Addendum: 05/30/16 at 1815 by BONI DRIVER RN HR 140s. MD mckeon. Diltiazem 5mg IV push for HR >120 sustained. Will monitor. Addendum: 05/30/16 at 1839 by BONI DRIVER RN 5mg diltiazem given with stable BP. Pt asymptomatic. Post administration HR remains in low 120s. Will continue to monitor.
[2016-05-30] MEDS ORDERED: Diltiazem 5 mg/mL 5 mL Inj IV PRN (18:05)
[2016-05-30] MEDS: Furosemide 10 mg/mL 10 mL Inj IVPUSH SCH (20:11)
[2016-05-30] MEDS ORDERED: Insulin GLARgine 100 Unit/mL Syringe SUBQ SCH (21:00)
[2016-05-31] VITALS (7 sets, daily range): BP systolic 123–137; BP diastolic 69–82; PULSE 96–105; RESP 15–22; O2SAT 93–99
[2016-05-31] MEDS: Albuterol-Ipratropium 3 mL Inhalation Solution NEB SCH ×3 (00:11→08:30)
[2016-05-31] MEDS: MethylprednisoLONE Sodium Succinate 40 mg/mL Inj IVPUSH SCH ×3 (01:29→15:26)
--- NOTE | 2016-05-31 04:04 | NUR ---
O2/Bipap/HR/Tele/BG levels Pt's Spo2 decreased to 88% on 3L oxymask with HR 110s while asleep. Pt requested to wear BiPAP and O2 sats increased to 99%. Tele:AFIB HR 90s per awake overnight monitor. BG levels 293/219 coverage received at HS. No s/sx of hypo/hyperglycemia noted. care ongoing.
[2016-05-31] MEDS: Furosemide 10 mg/mL 10 mL Inj IVPUSH SCH (08:23)
[2016-05-31] MEDS: Insulin LISPRO 300 Unit/3 mL Inj SUBQ SCH ×2 (08:26→12:04)
--- NOTE | 2016-05-31 10:42 | NUR ---
NUTRITION FOLLOW-UP: ASSESS: Pt is an 80yo M admitted to CCU for respiratory distress. He is tolerating BIPAP well. He was able to have his diet advanced to Heart Healthy/Consistent Carb 05/30 and is tolerating well at ~50% of meals. Wt is trending down due to fluid loss. PMHX: CHF, COPD, pneumonia, CKD 3, DM, GERD, HTN, BITA LABS: Reviewed. Bun 97, Loan And Credit Manager 2.67, Glu 243, Alb 3.7 MEDS: Reviewed. Lasix GI: BMx1 05/31 SKIN: Angus 18, no major issues CURRENT WTS: 75.2kg, BMI 24.5kg/m2, admit wt 77.27kg DIET: Heart Healthy/Consistent Carb. PO 50% EST. NEEDS: CKD stg 3 Kcals: 1965-2355kcal/day (25-30kcal/kg) Pro: 65-80g/day (0.8-1.0g/kg) NUTRITION DIAGNOSIS: 1.) Inadequate oral intake related to decreased ability to consume sufficient energy as evidenced by current NPO status--RESOLVED NUTRITION INTERVENTION: 1.) Continue current diet. PO is adequate for needs. MONITOR / EVAL: PO, labs, wt, GI, POC, nutrition status. Will continue to monitor per low nutrition risk guidelines.
[2016-05-31] MEDS ORDERED: Albuterol-Ipratropium 3 mL Inhalation Solution NEB PRN (11:10)
--- NOTE | 2016-05-31 11:25 | NUR ---
Social Work: Continued Discharge Planning D: Pt discussed in am rounds. Pt is making slow improvement from a respiratory standpoint. Pt is still on BIPAP and continuing to be diuresed. Pt has been on bedrest primarily during admission but has been up to the BSC intermittently. Pt is I at baseline. BOX FINISHER will continue to follow pt's clinical progress. Pt may require HH at time of discharge if pt is not back to his PLOF and/or has decreased mobility due to longevity of hospital admission with minimal activity level. anticipates pt will require several more days of hospitalization. A: Pt who is I at baseline but currently requiring BIPAP. P: Evolving; BOX FINISHER to continue to follow pt's clinical course closely. BOX FINISHER to rule out HH as discharge approaches. AKIRA Araya
--- NOTE | 2016-05-31 15:26 | PCM.DICHF ---
CHF Discharge Instructions Date of Service: May 31, 2016 Dates of Hospitalization Date of Hospital Admission May 28, 2016 at 10:21 Date of Discharge: May 31, 2016 Providers Admitting Physician: Trace Sanchez MD Primary Care Physician: New Aceves MD Attending Physician: Trace Sanchez MD Diagnosis at Time of Discharge Diagnosis at time of discharge #. Acute systolic heart failure, improved. #. Possible COPD exacerbation, improved #. Acute renal failure, improved. #. Chronic kidney disease stage III. #. Diabetes mellitus 2. Problems: Labs Ejection Fraction Laboratory Tests Test Range/Units 05/28/16 10:03 05/28/16 12:30 05/29/16 07:55 05/30/16 08:48 Troponin T 0.0-0.011 ug/L 0.031 Pro-B-Type Natriuretic Peptide 0-486 pg/mL 72083 Hemoglobin A1c 4.8-5.6 % 5.8 Lactic Acid Level 0.4-2.0 mmol/L 1.9 Magnesium Level 1.6-2.6 mg/dL 2.6 Procalcitonin 0.00-0.08 ng/mL 0.25 Thyroid Stimulating Hormone (TSH) 0.450-4.500 uIU/mL 1.050 Free Thyroxine Index 1.2-4.9 2.2 Thyroxine (T4) 4.5-12.0 ug/dL 6.0 Triiodothyronine (T3) Uptake 24-39 % 36 Total Bilirubin 0.0-1.2 mg/dL 0.4 Aspartate Amino Transf (AST/SGOT) 0-50 U/L 11 Alanine Aminotransferase (ALT/SGPT) 0-44 U/L 10 Alkaline Phosphatase 25-160 U/L 55 Total Protein 6.4-8.4 g/dL 6.3 Albumin 3.4-5.0 g/dL 3.7 Test Range/Units 05/31/16 08:27 Sodium Level 134-144 mEq/L 141 Potassium Level 3.5-5.2 mEq/L 4.2 Chloride Level 97-108 mEq/L 102 Carbon Dioxide Level 18-29 mmol/L 18 Blood Urea Nitrogen 8-27 mg/dL 97 Creatinine 0.76-1.27 mg/dL 2.67 Estimat Glomerular Filtration Rate >59 mL/min 25 Glucose Level 60-99 mg/dL 243 Calcium Level 8.5-10.1 mg/dL 9.0 Prealbumin 20-40 mg/dL 26 Discharge Medications Other Medication Instructions You have received instructions on the medications your physician has prescribed at discharge. A list of these medications has been provided to you. Keep this and a list of all current medications with you. Keep the dates when you received the Flu and Pneumococcal (Pneumonia) Vaccines. Last known date of receiving Flu Vaccine fall 2015 Last known date of receiving Pneumococcal (Pneumonia) Vaccine 2011 Diet CHF Discharge Diet: Fluid restriction, Low fat, Low Sodium, Diabetic Diet Instructions [facility] Low Salt diet ( 2 grams or less sodium/day) Choose foods and drinks with low or no salt. Remove salt shaker from the table. Read Nutritional Facts labels. Activity CHF Discharge Activity: Balance rest and activity Weight Monitoring 1. Weigh yourself every day at the same time and write it down. 2. Take your weight log to your doctor visits. 3. Call your doctor if you gain 3-5 pounds over 2-3 days. 4. Your weight today is 165.79 lbs. Additional Instructions [facility] Teaching Packet given and: Yes Smoking--Tobacco Use If you smoke, you are strongly encouraged to stop. If you have recently quit smoking, CONGRATULATIONS. For further information to stop smoking or to remain smoke-free, Follow Up Plan Follow Up Plan Dr Bear (cardiology) as scheduled June 04. Report or call your Doctor REPORT TO YOUR DOCTOR OR SEEK MEDICAL ATTENTION: *Shortness of breath or have more difficulty breathing. *Swelling of your feet, ankles, hands or abdomen. *Feeling tired with normal activity or experiencing dizziness or fainting. *Trouble sleeping or waking up feeling short of breath or coughing. *Chest pain or pressure. *Weight gain of 3-5 pounds over 2-3 days. *Inability to take medications or follow treatment plan Heart Attach warning signs HEART ATTACK WARNING SIGNS * Chest discomfort. *Discomfort or pain in one or both arms, back, neck, jaw or stomach. *Shortness of breath. *Breaking out in a cold sweat, nausea, or lightheadedness. If you're having heart attack warning signs: CALL . DON'T WAIT MORE THAN A FEW MINUTES - 5 MINUTES AT MOST - TO CALL . Additional Information Increase furosemide to 2 pills a day for the next 4 days until seen by Trace Maguire MD May 31, 2016 15:26
[2016-05-31] MEDS ORDERED: ALBU8.5H2 INHALATION (15:28)
--- NOTE | 2016-05-31 15:33 | NUR ---
Social Work: Readiness for Discharge/ Discharge Data: EMR reviewed. Pt is on day 3 of hospitalization for respiratory failure on BIPAP. Pt is ambulating independently in room. Pt has improved and is medically stable for discharge. SW spoke with pt at bedside regarding discharge plan. Pt states he has a follow up appointment with his cardiology scheduled. SW explained role of home health. Pt declined home health services at this time. Pt to discharge home with family to transport via POV. No discharge needs. Assessment: Pt who is independent at base. Plan: Pt has improved clinically to be able to discharge. Pt declining home health services at this time. Pt to discharge home with family to transport via POV. No discharge needs. Laura Siddiqi MSW
--- NOTE | 2016-05-31 15:43 | PCM.DC.MED ---
Discharge Summary Date of Service May 31, 2016 Dates of Hospitalization Date of Hospital Admission May 28, 2016 at 10:21 Date of Discharge: May 31, 2016 Providers: Admitting Physician: Trace Mattson MD Primary Care Physician: New Aceves MD Attending Physician: Trace Mattson MD Diagnosis at Time of Discharge Diagnosis at Time of Discharge #. Acute systolic heart failure, improved. #. Possible COPD exacerbation, improved #. Acute renal failure, improved. #. Chronic kidney disease stage III. #. Diabetes mellitus 2. Consultations None Procedures XRay, CTs & MRIs CXR: IMPRESSION: 1. Cardiomegaly and moderate vascular congestion may represent pulmonary edema. 2. Prominent perihilar airspace disease (left greater than right) is suspicious for pneumonia. However, this appearance may be related to pulmonary edema. Please correlate clinically. 3. Small bilateral effusions and associated basilar atelectasis. Dictated by: Jeffrey Valle M.D. on 05/28/2016 at 8:21 Approved by: Jeffrey Valle M.D. on 05/28/2016 at 8:23 ECG 12 Lead Atrial fibrillation with RVR, anterior and inferior Q waves. No St segment changes. Cardiac Echo Impression nterpretation Summary The left ventricle is borderline dilated. The ejection fraction is estimated to be 20-25%. There is moderate to severe global hypokinesis of the left ventricle. There is apical severe hypokinesis. The left atrium is severely dilated. The mitral valve leaflets are moderately calcified. The mitral valve mean gradient is 9 mmHg. There is moderate to severe mitral regurgitation. The aortic valve is moderately calcified. Leaflet mobility is moderate to severely reduced. The calculated aortic valve area is 0.85 cm2. There is mild aortic regurgitation. There is moderate tricuspid regurgitation. The right ventricular systolic pressure is estimated at 63 mmHg assuming a right atrial pressure of 15 mm Hg. There are moderate-sized bilateral pleural effusions noted. Compared to prior echo report on 2016, changes are noted. Brief History Patient with a history of COPD and possible CHF presents with progressive dyspnea over 4 days. No chest pain, or leg edema. Some recent allergies and rhinorrhea. No fevers, chills, sore throat, or cough. No palpitations or orthopnea. Chest xray concerning for pulmonary edema as well as a possible infiltrate, In the ER he was given a dose of IV lasix as well as nitro paste. He arrives to unit on BiPAP. Has BITA as well. The patient denies any chest pain. He has had some recent rhinorrhea but attributes this to his allergies which are always worse this time of year. He also notes a 65 year history of smoking although he is not a smoker at this point. He has never formally been diagnosed with COPD. He has noted some wheezing recently. He denies any leg edema recently. No overt orthopnea. No recent infectious symptoms such as a cough or fevers or chills. He has a stated history of possible CHF although further information is not available. He denies history of heart attack from his knowledge. No recent palpitations. He also denies exertional chest pain recently. He has been however quite short of breath with exertion. Hospital Course #. Acute hypoxic respiratory failure, POA. Start BiPAP. Etiology of this appears to be pulmonary edema which may relate to heart failure which is not further characterized. The patient also has a very high likelihood of COPD with his extensive smoking history which may have been exacerbated recently by his seasonal allergies. We will continue BiPAP as needed and will monitor him clinically. We will continue to use BiPAP as needed will give him break today and see how long he can stay off without getting dyspneic and fatigued. I believe the primary cause of this is acute systolic heart failure and secondary contributor may be COPD exacerbation. #. Acute systolic heart failure, unclear type, POA. Nitropaste, and IV diuresis. ECHO and rule out NSTEMI with serial troponins. Chest x-ray does indicate pulmonary edema. A 2-D echo will assess his ventricular function or not he has systolic failure. Repeat chest x-ray. Yesterday's x-ray indicated pulmonary edema. I's and O's indicate a reasonable diuresis but it could be better. We will increase the furosemide from 40-60 IV every 12. We will reevaluate his creatinine today. #. Probable COPD exacerbation, POA. We will continue IV steroids and bronchodilators. #. Probable acute renal failure with a component of chronic kidney disease stage III. POA. We will reassess creatinine today and continue to watch while he is being diurese #. Diabetes mellitus 2, POA. Patient does have mild hyperglycemia. Lantus 5 now and then Lantus 5 daily at bedtime. U correctional lispro. Full code, discussed at time of admission. Inpatient status, over 2 nights stay anticipated. Hospital course. This patient was admitted for acute respiratory failure with hypoxia. He was placed on BiPAP and entertained with BiPAP ventilation for the first 2 days. Chest x-ray and acute pulmonary edema and he was diuresed. Physical examination dictated wheezy lungs and because of his history of COPD she was treated with empiric steroids and bronchodilators. He developed hyperglycemia as he does have diet-controlled diabetes is baseline. Neck O indicated chronic systolic heart failure with an EF of about 25%. The patient ultimately did improve with diuresis and was able to come off BiPAP and in fact admitted discharged able to ambulate easily around the wart multiple times with no desaturations. He also does have chronic atrial fibrillation and had some rapid ventricular response at times but not on the day of discharge. He had denied any medication compliance issues or obvious change to his diet although he had been eating out more often recently. Exam Vital Signs (Last) Date Time Temp Pulse Resp B/P Pulse Ox O2 Delivery O2 Flow Rate FiO2 05/31/16 11:51 36.5 103 18 133/82 93 Room Air 05/31/16 07:27 3.00 05/31/16 03:20 35 Exam Patient is seen and examined the discharge Test 05/28/16 10:03 05/28/16 12:30 05/29/16 07:55 05/30/16 08:48 Neutrophils (%) (Auto) 87.6% (40-74) Lymphocytes (%) (Auto) 2.6% (14-46) Monocytes (%) (Auto) 9.5% (4-12) Eosinophils (%) (Auto) 0% (0-5) Basophils (%) (Auto) 0.1% (0-3) Prothrombin Time 12.0sec (8.1-12.5) Prothromb Time International Ratio 1.12ratio Troponin T 0.031ug/L (0.0-0.011) Pro-B-Type Natriuretic Peptide 99429ne/mL (0-486) Hemoglobin A1c 5.8% (4.8-5.6) Lactic Acid Level 1.9mmol/L (0.4-2.0) Magnesium Level 2.6mg/dL (1.6-2.6) Procalcitonin 0.25ng/mL (0.00-0.08) Thyroid Stimulating Hormone (TSH) 1.050uIU/mL (0.450-4.500) Free Thyroxine Index 2.2 (1.2-4.9) Thyroxine (T4) 6.0ug/dL (4.5-12.0) Triiodothyronine (T3) Uptake 36% (24-39) Total Bilirubin 0.4mg/dL (0.0-1.2) Aspartate Amino Transf (AST/SGOT) 11U/L (0-50) Alanine Aminotransferase (ALT/SGPT) 10U/L (0-44) Alkaline Phosphatase 55U/L (25-160) Total Protein 6.3g/dL (6.4-8.4) Albumin 3.7g/dL (3.4-5.0) Test 05/31/16 08:27 White Blood Count 11.4th/mm3 (3.8-10.1) Red Blood Count 3.03mil/mm3 (4.40-5.80) Hemoglobin 9.4g/dL (13.8-17.2) Hematocrit 29.4% (41.0-50.0) Mean Corpuscular Volume 97.0fL (81-100) Mean Corpuscular Hemoglobin 31.0pg (27.0-35.0) Mean Corpuscular Hemoglobin Concent 32.0% (32.0-37.0) Red Cell Distribution Width 14.7% (12.3-15.4) Platelet Count 328bil/L (150-400) Sodium Level 141mEq/L (134-144) Potassium Level 4.2mEq/L (3.5-5.2) Chloride Level 102mEq/L (97-108) Carbon Dioxide Level 18mmol/L (18-29) Blood Urea Nitrogen 97mg/dL (8-27) Creatinine 2.67mg/dL (0.76-1.27) Estimat Glomerular Filtration Rate 25mL/min (>59) Glucose Level 243mg/dL (60-99) Calcium Level 9.0mg/dL (8.5-10.1) Prealbumin 26mg/dL (20-40) Discharge Medications Discharge Medications Albuterol HFA (Proair HFA) 8.5 Gm Hfa.aer.ad 2 PUFFS INHALATION Q4H Prescribed by: TRACE MATTSON MD Amlodipine (Amlodipine) 5 Mg Tablet 5 MG PO BID (Reported) Aspirin Chew (Aspirin Chew) 81 Mg Tab.chew 81 MG PO every other day (Reported) Atorvastatin Calcium (Atorvastatin Calcium) 40 Mg Tablet 40 MG PO DAILY ( Reported) Carvedilol (Coreg) 6.25 Mg Tablet 3.125 MG PO DAILY Prescribed by: NADIR RICO MD Clopidogrel (Clopidogrel) 75 Mg Tablet 75 MG PO every other day (Reported) Furosemide (Furosemide) 40 Mg Tablet 40 MG PO DAILY (Reported) Hydralazine (Hydralazine) 10 Mg Tablet 25 MG PO TID (Reported) Isosorbide DN (Isosorbide DN) 20 Mg Tablet 2 TAB PO BID (Reported) Losartan Potassium (Losartan Potassium) 25 Mg Tablet 25 MG PO DAILY (Reported) Followup Plan Disposition: Home Follow-up plan Dr Bear (cardiology) as scheduled June 04. Time spent 40 minutes Trace Mattson MD May 31, 2016 15:43
--- NOTE | 2016-05-31 16:44 | NUR ---
Discharge Pt was discharged today to home via POV accompanied by spouse. All questions answered. F/U with cardiology is on 06/04 Rx hardcopy given to patient.
[2016-06-04] MEDS ORDERED: FERR325C PO (17:33)
[2016-06-04] MEDS ORDERED: CALC0.257 PO (17:33)
[2016-06-04] MEDS ORDERED: SYMINH INHALATION (17:33)
[2016-06-04] MEDS ORDERED: CHOL200025 PO (17:33)
== END 2016-05-31 17:25 | disposition home or self-care (01) | DRG 291 ==
LOC: SED 08:38 → CCU 10:21 → PCC 05-29 14:01
PROVIDERS: ADMIT Hospitalist; ATTEND Hospitalist
PROC: 4A033B1 Measurement of Arterial Pressure, Peripheral, Percutaneous Approach (ICD-10-PCS; principal; 2016-05-28)
PROC: 5A09458 Assistance with Respiratory Ventilation, 24-96 Consecutive Hours, Intermittent Positive Airway Pressure (ICD-10-PCS; 2016-05-28)
PROC: 3E033RZ Introduction of Antiarrhythmic into Peripheral Vein, Percutaneous Approach (ICD-10-PCS; 2016-05-29)
DX: I50.21 Acute systolic (congestive) heart failure (principal); J96.01 Acute respiratory failure with hypoxia; J18.9 Pneumonia, unspecified organism; E87.2 Acidosis; J44.1 Chronic obstructive pulmonary disease with (acute) exacerbation; J44.0 Chronic obstructive pulmonary disease with (acute) lower respiratory infection; N17.9 Acute kidney failure, unspecified; I13.0 Hypertensive heart and chronic kidney disease with heart failure and stage 1 through stage 4 chronic kidney disease, or unspecified chronic kidney disease; N18.3 Chronic kidney disease, stage 3 (moderate); I48.2 Chronic atrial fibrillation; E11.65 Type 2 diabetes mellitus with hyperglycemia; I25.10 Atherosclerotic heart disease of native coronary artery without angina pectoris; G47.33 Obstructive sleep apnea (adult) (pediatric); Z66 Do not resuscitate; I25.2 Old myocardial infarction; Z79.82 Long term (current) use of aspirin; Z95.5 Presence of coronary angioplasty implant and graft; Z87.891 Personal history of nicotine dependence; Z79.84 Long term (current) use of oral hypoglycemic drugs

== ENCOUNTER 2016-06-05 00:52 | Inpatient (IN) | payer MEDICARE, OTHER ==
[2016-06-05] VITALS (17 sets, daily range): BP systolic 101–128; BP diastolic 55–85; PULSE 80–113; RESP 11–23; O2SAT 93–100
[~2016-06-05] VITALS: Ht 175.3 cm; Wt 75.3 kg
[~2016-06-05 00:52] MED LIST changes: +ALBU8.5H2 INHALATION; +CALC0.257 PO; +CHOL200025 PO; +FERR325C PO; +LOSA25TA21 PO; +SYMINH INHALATION
[2016-06-05 06:37] LABS: BASOPHILS % (AUTO) 0.1 % (0-3); MONOCYTES % (AUTO) 7.8 % (4-12); Mean Corpuscular Hemoglobin 31.9 pg (27.0-35.0); NEUTROPHILS % (AUTO) 84.2 % (40-74); Platelet Count 316 bil/L (150-400)
[2016-06-05] MEDS ORDERED: Sodium Bicarb 8.4% Inj 150 MEQ in Dextrose 5% 1,000 ML IV ONE (06:40)
--- NOTE | 2016-06-05 06:48 | NUR ---
Pt admitted to [facility] for heart cath with . He is alert, oriented,accompanied by his Brenda.
[2016-06-05] MEDS ORDERED: Heparin 1,000 Units/500 mL NS Premix IV ONE (07:37)
[2016-06-05] MEDS ORDERED: Heparin 5,000 Units/500 mL NS Premix IV ONE (07:37)
[2016-06-05] MEDS ORDERED: 0.9% Sodium Chloride 50 ML ONE (07:37)
[2016-06-05] MEDS ORDERED: fentaNYL-PF 50 mCg/mL 2 mL Inj ONE (08:28)
--- NOTE | 2016-06-05 08:52 | DRSVH ---
PROCEDURE: X-RAY CHEST ONE VIEW, PORTABLE ([id number]) INDICATIONS: ELEVATED WBC'S TECHNIQUE: One view of the chest was acquired. COMPARISON: [facility], CR, XR CHEST 1VW (PORTABLE), 05/30/2016, 10:27. [facility], CR, XR CHEST 1VW, 05/29/2016, 8:02. FINDINGS: Surgical changes and devices: None. Lungs and pleura: No pleural effusions or pneumothorax. Lungs are abnormal with patchy bilateral pn eumonia, moderately severe overall in slightly greater on the left than the right.. Mediastinum: Mediastinal contours appear normal. Heart size is difficult to accurately assess due t o adjacent relatively dense lung parenchyma but likely is moderately enlarged.. Bones and chest wall: No suspicious bony lesions. Overlying soft tissues appear unremarkable. IMPRESSION: Patchy bilateral pneumonia pattern, moderately severe, left greater than right. Moderate cardiomegaly. Dictated by: Jeb Wilkins M.D. on 06/05/2016 at 8:51 Approved by: Jeb Wilkins M.D. on 06/05/2016 at 8:51
[2016-06-05 09:04] LABS: APPEARANCE,URINE CLEAR (CLEAR,HAZY); COLOR,URINE YELLOW (YELLOW); OCCULT BLOOD,URINE NEGATIVE (NEGATIVE); PH,URINE 5.5 (5.0-8.0); UROBILINOGEN,URINE NORMAL (NORMAL)
[2016-06-05] MEDS ORDERED: Heparin 1,000 Unit/mL 10 mL Inj ONE (09:10)
--- NOTE | 2016-06-05 10:27 | CS94 ---
[address] [address] DIAGNOSTIC CARDIAC CATHETERIZATION PATIENT: NOAH FERRARO : 1935 MR#: [id number] ADMIT: 06/05/2016 JOB ID: [id number] SERVICE DATE: 06/05/2016 PATIENT PROFILE: The patient is an 80-year-old male with a history of aortic stenosis, hypertension, hyperlipidemia, diabetes, and peripheral vascular disease. The patient was hospitalized last week with progressive dyspnea. He also has chronic kidney disease stage 4. PROCEDURE: 1. Right heart catheterization. 2. Retrograde left heart catheterization. 3. Selective coronary angiography. VASCULAR CLOSURE DEVICE: None. COMPLICATION: None. METHOD: Combined right and left heart catheterization was performed from the right groin under 1% lidocaine local anesthesia using a 6-American and a 7-American sheath. It was somewhat difficult to obtain arterial access and advance an 0.035 wire into the abdominal aorta due to heavily calcified iliac arteries. This was performed with a Glidewire and a 5-American dilator and placing a 25 cm 6-American sheath. A 7-American [place]-Sobeida catheter was used for the right heart pressures. Cardiac output was determined by both thermodilution technique and DANNI method. Selective coronary angiogram was performed in multiple projections, including cranial and caudal angulations with hand injected contrast via JL4 and 3DRC catheters. Following sheath removal, hemostasis was achieved by manual compression. The patient tolerated procedure well. He was transferred to [facility] in good condition. TOTAL CONTRAST USED: 40 cc. FLUOROSCOPY TIME: 3.6 minutes. RESULTS: 1. Mean right atrial pressure is 3 mmHg. Right ventricular pressure is 45/0 mmHg. Pulmonary artery pressure is 46/12 mmHg. 2. Mean pulmonary capillary wedge pressure is 20 mmHg with a V wave of 30 mmHg. 3. Arterial oxygen saturation is 93%. Mixed venous saturation is 54%. 4. Cardiac output by the DANNI method is 4.86 L/minute with an index of 2.56 L/minute/meter squared. 5. Cardiac output by the thermodilution technique is 4.51 L/minute with an index of 2.37 L/minute/meter squared. 6. Selective coronary angiogram a. The coronary arteries are heavily calcified. b. Left main coronary artery is short and has eccentric and heavily calcified 30% stenosis. c. The left anterior descending artery is transapical and has diffuse minor irregularity disease. d. The dominant circumflex artery has diffuse disease and eccentric 60% stenosis in the distal portion. e. The nondominant right coronary artery has minor disease. CONCLUSIONS: 1. Moderate pulmonary hypertension. 2. Cardiac index is 2.4 L/minute/meter squared. 3. Mean pulmonary capillary wedge pressure is 20 mmHg with a V wave of 30 mmHg. 4. Heavily calcified coronary artery with nonhemodynamic significant stenosis. MTDD
[2016-06-05] MEDS: Sodium Chloride LOK Flush 10 mL Syringe IVFLUSH SCH ×3 (14:43→20:13)
--- NOTE | 2016-06-05 14:47 | NUR ---
Pt tx to room 3004 in stable condition. Report called earlier to Mynor Mora R.N. Right groin remains stable, pt has not voided as yet, he has bedrest until 16:00 as well as bicarbonate infusion until 16:00.
--- NOTE | 2016-06-05 14:49 | NUR ---
Admit from [facility] Pt arrived transfer from [facility] at approx 1445, pt is A&O, on RA, pt on bedrest and IV infusing until 1600, VS stable. Bed position low, call light in reach, tele on (Afib at baseline), pt resting comfortably in bed. Care continues.
[2016-06-05] MEDS ORDERED: Albuterol 2.5 mg/3 mL Inhalation Solution NEB PRN (16:15)
[2016-06-05] MEDS ORDERED: Piperacillin-Tazo 3.375 Gm Inj 3.375 GM in Dextrose 5% Minibag Plus 50 ML IV ONE (16:30)
[2016-06-05] MEDS ORDERED: 0.9% Sodium Chloride 250 ML ONE (16:44)
--- NOTE | 2016-06-05 16:44 | PCM.HPMED ---
Subjective Date of Service Jun 05, 2016 Primary Provider: Admitting Physician: Primary Care Physician: New Aceves MD Attending Physician: Merle Russell MD Chief Complaint: Status post cardiac catheterization History of Present Illness: 80yo M with CAD, HTN, HLD, DM, PVD, recent hospitalization with ADHF+/-COPD exacerbation05/28- sent from label press operator based on CXR showing "pneumonia" directly admitted to [facility] by When patient was admitted to hospital, pt had MICHELLE for 4days, placed on BiPAP, iv lasix 40, 60mg, also treated with frequent nebs, steroid based on significant smoking hx.Patient was discharged with Symbicort, lasix, coreg. TTE 05/28 showed significant LV dysfunction EF25%, severe pHTN, severe MR, multifocal WMA. Patient was followed in the clinic 06/04 yesterday, underwent elective LHC/RHC today by which showed Moderate pulmonary hypertension, severe systolic dysfunction CI 2.4, heavily calcified nonobstructive CAD. Repeat CXR today showed probable PNA with bilateral patch infiltrate. Therefore , patient was admitted. pt stated that since he wad d/noelle, he still had SOB with minimal exertion at home, not at rest, which was significantly better than when he originally came on 05/28, his MICHELLE hasn't changed since d/c, not worse or better. He has been using Symbicort, used rescue inhaler once last night, both of which seemed helpful for his breathing but not significantly different. Pt denied any cough, sputum, fever, chills, chest pain, palpitation. cannot tolerate supine position chronically using 1pillow, denied orthopnea. PNA, woke up at night for urination. denied further wt gain, acute chg of exercise tolerance since d/c Initial VS at label press operator today morning, 110/70, 80, 13, 100% on RA, became tachycardic to 113 in PM. remained HD stable. Upon interview, pt was breathing comfortably, denied SOB, maintained absolute bed rest as directed. Bicarb gtt was running from label press operator. Review of Systems: Pertinent positives as noted in history of present illness. All other systems were reviewed and are negative Allergies Coded Allergies: povidone-iodine (Verified Allergy, Severe, Hives, 01/02/15) soap (Verified Allergy, Severe, Hives, 01/02/15) Contrast Media (Verified Adverse Reaction, Severe, 06/25/14) required dialysis to clear it. clonidine (Verified Adverse Reaction, Unknown, Dizziness, insomnia, pale, Depression, 06/25/14) Home Medications Discharge Medications on 05/31, 06/05 Albuterol HFA (Proair HFA) 8.5 Gm Hfa.aer.ad 2 PUFFS INHALATION Q4H Prescribed by: CEZAR MATTSON MD Amlodipine (Amlodipine) 5 Mg Tablet 5 MG PO BID (Reported) Aspirin Chew (Aspirin Chew) 81 Mg Tab.chew 81 MG PO every other day (Reported) Atorvastatin Calcium (Atorvastatin Calcium) 40 Mg Tablet 40 MG PO DAILY ( Reported) Carvedilol (Coreg) 6.25 Mg Tablet 3.125 MG PO DAILY Prescribed by: NADIR RICO MD Clopidogrel (Clopidogrel) 75 Mg Tablet 75 MG PO every other day (Reported) Furosemide (Furosemide) 40 Mg Tablet 40 MG PO DAILY (Reported) -G-z-l-m-e-e-a-z-i-n-e- -(--T-q-g-y-c-g-a-z-i-n-e--)- -1-0- -M-g- -E-f-j-l-e-t- -2-5- -M-G- -P-O- -T-I-D- -(--R-k-m-o-r-t-e-d--)- -K-p-f-k-d-q-b-i-d-e- -D-N- -(--K-i-e-y-u-p-b-i-d-e- -D-N--)- -2-0- -M-g- -O-x-j-l-e-t- -2- -T-A-B- -P-O- -B-I-D- -(--D-q-e-o-r-t-e-d--)- Losartan Potassium (Losartan Potassium) 25 Mg Tablet 25 MG PO DAILY (Reported) hydralazine/Imdur stopped PMH PMH 1. Congestive heart failure 2. Chronic obstructive pulmonary disease 3. Remote history of pneumonia 4. CKD 3 5. Diabetes mellitus 2, diet-controlled 6. GERD 7. Hypertension 8. Obstructive sleep apnea. 9. Remote history of transient acute renal failure, resolved. Surgical History 1. Cataract surgery. 2. Cardiac PCI with 2 stents. Family History Positive for CAD. Social History Hx Alcohol Use: No Hx Substance Use: No Hx Tobacco Use: Yes Smoking Status: Former Smoker Exam Vital Signs Vital Sign - Last Date Time Temp Pulse Resp B/P Pulse Ox O2 Delivery O2 Flow Rate FiO2 06/05/16 15:35 36.8 105 18 111/75 94 Room Air 06/05/16 11:30 2.00 Exam NAD, comfortably laying down on the bed no JVD, MMM, no LAD tachy irregular, nl s1, s2 no mrg CTAB, no w,c S,ND,NT,normoactive BS+ warm, no edema, pulses 2/2 on Rt DP Lab and Diagnostics Result Diagram: 06/05/1662406/05/16624 Cardiac Echo Impressions Echocardiogram Report Name: NOHA FERRARO DStudy Date: 05/28/2016 Height: 69 in Hospital Exam Location: [facility] Weight: 170 lb Gender: Male BSA: 1.9 m2 : 1935 Age: 80 yrs BP: 133/77 mmHg Reason For Study: Dyspnea Ordering Physician: HOSPITALIST SVHPerformed By: Sergey Moctezuma Referring Physician: CEZAR MATTSON Interpretation Summary The left ventricle is borderline dilated. The ejection fraction is estimated to be 20-25%. There is moderate to severe global hypokinesis of the left ventricle. There is apical severe hypokinesis. The left atrium is severely dilated. The mitral valve leaflets are moderately calcified. The mitral valve mean gradient is 9 mmHg. There is moderate to severe mitral regurgitation. The aortic valve is moderately calcified. Leaflet mobility is moderate to severely reduced. The calculated aortic valve area is 0.85 cm2. There is mild aortic regurgitation. There is moderate tricuspid regurgitation. The right ventricular systolic pressure is estimated at 63 mmHg assuming a right atrial pressure of 15 mm Hg. There are moderate-sized bilateral pleural effusions noted. Compared to prior echo report on 2015, changes are noted. Additional Diagnostics: DIAGNOSTIC CARDIAC CATHETERIZATION PATIENT: NOAH FERRARO : 1935 MR#: [id number] ADMIT: 06/05/2016 JOB ID: [id number] SERVICE DATE: 06/05/2016 PATIENT PROFILE: The patient is an 80-year-old male with a history of aortic stenosis, hypertension, hyperlipidemia, diabetes, and peripheral vascular disease. The patient was hospitalized last week with progressive dyspnea. He also has chronic kidney disease stage 4. PROCEDURE: 1. Right heart catheterization. 2. Retrograde left heart catheterization. 3. Selective coronary angiography. VASCULAR CLOSURE DEVICE: None. COMPLICATION: None. METHOD: Combined right and left heart catheterization was performed from the right groin under 1% lidocaine local anesthesia using a 6-British and a 7-British sheath. It was somewhat difficult to obtain arterial access and advance an 0.035 wire into the abdominal aorta due to heavily calcified iliac arteries. This was performed with a Glidewire and a 5-British dilator and placing a 25 cm 6-British sheath. A 7-British [place]-Sobeida catheter was used for the right heart pressures. Cardiac output was determined by both thermodilution technique and DANNI method. Selective coronary angiogram was performed in multiple projections, including cranial and caudal angulations with hand injected contrast via JL4 and 3DRC catheters. Following sheath removal, hemostasis was achieved by manual compression. The patient tolerated procedure well. He was transferred to [facility] in good condition. TOTAL CONTRAST USED: 40 cc. FLUOROSCOPY TIME: 3.6 minutes. RESULTS: 1. Mean right atrial pressure is 3 mmHg. Right ventricular pressure is 45/0 mmHg. Pulmonary artery pressure is 46/12 mmHg. 2. Mean pulmonary capillary wedge pressure is 20 mmHg with a V wave of 30 mmHg. 3. Arterial oxygen saturation is 93%. Mixed venous saturation is 54%. 4. Cardiac output by the DANNI method is 4.86 L/minute with an index of 2.56 L/minute/meter squared. 5. Cardiac output by the thermodilution technique is 4.51 L/minute with an index of 2.37 L/minute/meter squared. 6. Selective coronary angiogram a. The coronary arteries are heavily calcified. b. Left main coronary artery is short and has eccentric and heavily calcified 30% stenosis. c. The left anterior descending artery is transapical and has diffuse minor irregularity disease. d. The dominant circumflex artery has diffuse disease and eccentric 60% stenosis in the distal portion. e. The nondominant right coronary artery has minor disease. CONCLUSIONS: 1. Moderate pulmonary hypertension. 2. Cardiac index is 2.4 L/minute/meter squared. 3. Mean pulmonary capillary wedge pressure is 20 mmHg with a V wave of 30 mmHg. 4. Heavily calcified coronary artery with nonhemodynamic significant stenosis. Merle Russell MD 06/05/16 0955 <Electronically signed by Merle Russell MD> 06/05/16 1211 Assessment & Plan acute, active persistent MICHELLE, NYHAIII, POA, multifactorial: underlying severe systolic CHF, probable PNA based on CXR, elevated wbc, PCT despite no systemic inflammatory response. pt had neg resp PCR from last hospitalization, doesn't have overt sx of PNA. -appreciate input -started azithromycin, zosyn to treat as HCAP for now, will stop if suspicion is low. -trend wbc, PCT, fever curve, awaits BCX x2sets -since pt is not septic, HD stable, will try more aggressive diuresis 60mg iv bid, i/o, daily wt. CXR daily -continue symbicort, alb prn, hold off on steroid as clinically low suspicion for COPD exacerbation. -if pt compensates, get ABG, transfer to [facility] for BiPAP Afib with uncontrolled rate 80-110s, POA, mildly higher side from target, -will give coreg now, continue home does coreg3.125mg qd, titrate up to target dose -metoprolol 5mg iv x3 prn for RVR -continue asa/plavix chronic, stable COPD, as above CKD3, stable, DM, last a1c5.8, will start lisproSS GERD HTN, HLD, hold ARB, norvasc for now until HD more stable. continue statin Obstructive sleep apnea, consider CPAP dispo:Patient will be admitted with inpatient status with expectation of inpatient therapy for more than 2 midnights diet:cardiac dvt ppx:HSQ Full code. Time spent 65min Rossy Manjarrez MD Jun 05, 2016 15:46
[2016-06-05] MEDS ORDERED: Furosemide 10 mg/mL 10 mL Inj IVPUSH ONE (16:45)
--- NOTE | 2016-06-05 19:13 | NUR ---
Bleeding at Cath site Pt had bleeding at cath site/groin at approx 1700, pt gown changed and cleaned up. solar lab technician called, who sent someone up to assess, who advised if bleeding continues to use 2x2 and tegaderm for additional pressure to stop bleeding. Continuing to monitor, NOC nurse notified.
[2016-06-05] MEDS: Fluticasone-Salmererol 250-50 Inhaler INHALATION SCH (20:13)
[2016-06-05] MEDS ORDERED: MeTOProlol 1 mg/mL 5 mL Inj IVPUSH SCH (21:30)
[2016-06-06] VITALS (8 sets, daily range): BP systolic 106–138; BP diastolic 62–74; PULSE 95–117; RESP 18–20; O2SAT 93–96
[2016-06-06] MEDS ORDERED: Atropine 1 mg/10 mL (Code) Syringe IVPUSH PRN (03:20)
[2016-06-06] MEDS ORDERED: Ondansetron 2 mg/mL 2 mL Inj IVPUSH PRN (03:20)
--- NOTE | 2016-06-06 03:27 | NUR ---
cath site Cath site to right groin has minimal bleeding since the beginning of shift. no further bleeding noted even after pt got up at bedside to use the urinal. denies pain or discomfort. no c/o SOB; SpO2 in mid 90s on RA. antibiotics given as MD ordered.
[2016-06-06] MEDS ORDERED: Piperacillin-Tazo 3.375 Gm Inj 3.375 GM in Dextrose 5% Minibag Plus 50 ML IV ONE (05:00)
[2016-06-06 05:34] LABS: BASOPHILS % (AUTO) 0.1 % (0-3); EOSINOPHILS % (AUTO) 2.8 % (0-5); MONOCYTES % (AUTO) 9.6 % (4-12); Mean Corpuscular Hemoglobin 32.1 pg (27.0-35.0); Mean Corpuscular Volume 99.7 fL (81-100); NEUTROPHILS % (AUTO) 81.9 % (40-74); Platelet Count 277 bil/L (150-400)
[2016-06-06] MEDS ORDERED: 0.9% Sodium Chloride 100 ML ONE (06:22)
[2016-06-06 06:25] LABS: Magnesium 2.2 mg/dL (1.6-2.6); Phosphorus 3.3 mg/dL (2.5-4.9)
[2016-06-06] MEDS: Furosemide 10 mg/mL 10 mL Inj IVPUSH SCH ×2 (06:28→16:12)
[2016-06-06] MEDS: Sodium Chloride LOK Flush 10 mL Syringe IVFLUSH SCH ×2 (07:54→16:12)
[2016-06-06] MEDS: Fluticasone-Salmererol 250-50 Inhaler INHALATION SCH ×2 (07:55→19:49)
--- NOTE | 2016-06-06 14:28 | NUR ---
Case Management: IMM given and explained to pt. Fior CAMARGO RN
--- NOTE | 2016-06-06 14:31 | PCM.PNMED ---
Subjective Date of Service Jun 06, 2016 Subjective pt feels about the same, no SOB, cough, sputum, brisk urination with 60mg iv lasix yesterday Exam Vital Signs Vital Sign - Last Date Time Temp Pulse Resp B/P Pulse Ox O2 Delivery O2 Flow Rate FiO2 06/06/16 12:43 36.9 114 20 117/68 95 Room Air 06/05/16 11:30 2.00 Intake and Output 06/05/16 06/05/16 06/06/16 Cumulative From/Thru 15:00 23:00 07:00 06/05/16 06:37 - 06/05/16 19:31 Intake Total 860 ml 287 ml 1147 ml Output Total 500 ml 500 ml Balance 860 ml -213 ml 647 ml Intake Oral 360 ml 237 ml 597 ml IV Total 500 ml 50 ml 550 ml Output Urine Total 500 ml 500 ml IVs and Medications Medications Reviewed: Medications were reviewed in detail Lab and Diagnostics Result Diagram: 06/06/16 0519 06/06/16518 Cardiac Echo Impressions Echocardiogram Report Name: NOAH FERRARO DStudy Date: 05/28/2016 Height: 69 in Hospital Exam Location: [facility] Weight: 170 lb Gender: Male BSA: 1.9 m2 : 1935 Age: 80 yrs BP: 133/77 mmHg Reason For Study: Dyspnea Ordering Physician: HOSPITALIST SVHPerformed By: Sergey Moctezuma Referring Physician: CEZAR MATTSON Interpretation Summary The left ventricle is borderline dilated. The ejection fraction is estimated to be 20-25%. There is moderate to severe global hypokinesis of the left ventricle. There is apical severe hypokinesis. The left atrium is severely dilated. The mitral valve leaflets are moderately calcified. The mitral valve mean gradient is 9 mmHg. There is moderate to severe mitral regurgitation. The aortic valve is moderately calcified. Leaflet mobility is moderate to severely reduced. The calculated aortic valve area is 0.85 cm2. There is mild aortic regurgitation. There is moderate tricuspid regurgitation. The right ventricular systolic pressure is estimated at 63 mmHg assuming a right atrial pressure of 15 mm Hg. There are moderate-sized bilateral pleural effusions noted. Compared to prior echo report on 2015, changes are noted. Additional Diagnostics DIAGNOSTIC CARDIAC CATHETERIZATION PATIENT: NOAH FERRARO : 1935 MR#: [id number] ADMIT: 06/05/2016 JOB ID: [id number] SERVICE DATE: 06/05/2016 PATIENT PROFILE: The patient is an 80-year-old male with a history of aortic stenosis, hypertension, hyperlipidemia, diabetes, and peripheral vascular disease. The patient was hospitalized last week with progressive dyspnea. He also has chronic kidney disease stage 4. PROCEDURE: 1. Right heart catheterization. 2. Retrograde left heart catheterization. 3. Selective coronary angiography. VASCULAR CLOSURE DEVICE: None. COMPLICATION: None. METHOD: Combined right and left heart catheterization was performed from the right groin under 1% lidocaine local anesthesia using a 6-Wallisian and a 7-Wallisian sheath. It was somewhat difficult to obtain arterial access and advance an 0.035 wire into the abdominal aorta due to heavily calcified iliac arteries. This was performed with a Glidewire and a 5-Wallisian dilator and placing a 25 cm 6-Wallisian sheath. A 7-Wallisian [place]-Sobeida catheter was used for the right heart pressures. Cardiac output was determined by both thermodilution technique and DANNI method. Selective coronary angiogram was performed in multiple projections, including cranial and caudal angulations with hand injected contrast via JL4 and 3DRC catheters. Following sheath removal, hemostasis was achieved by manual compression. The patient tolerated procedure well. He was transferred to [facility] in good condition. TOTAL CONTRAST USED: 40 cc. FLUOROSCOPY TIME: 3.6 minutes. RESULTS: 1. Mean right atrial pressure is 3 mmHg. Right ventricular pressure is 45/0 mmHg. Pulmonary artery pressure is 46/12 mmHg. 2. Mean pulmonary capillary wedge pressure is 20 mmHg with a V wave of 30 mmHg. 3. Arterial oxygen saturation is 93%. Mixed venous saturation is 54%. 4. Cardiac output by the DANNI method is 4.86 L/minute with an index of 2.56 L/minute/meter squared. 5. Cardiac output by the thermodilution technique is 4.51 L/minute with an index of 2.37 L/minute/meter squared. 6. Selective coronary angiogram a. The coronary arteries are heavily calcified. b. Left main coronary artery is short and has eccentric and heavily calcified 30% stenosis. c. The left anterior descending artery is transapical and has diffuse minor irregularity disease. d. The dominant circumflex artery has diffuse disease and eccentric 60% stenosis in the distal portion. e. The nondominant right coronary artery has minor disease. CONCLUSIONS: 1. Moderate pulmonary hypertension. 2. Cardiac index is 2.4 L/minute/meter squared. 3. Mean pulmonary capillary wedge pressure is 20 mmHg with a V wave of 30 mmHg. 4. Heavily calcified coronary artery with nonhemodynamic significant stenosis. Merle Russell MD 06/05/16 0928 <Electronically signed by Merle Russell MD> 06/05/16 1211 Assessment & Plan acute, active persistent MICHELLE, NYHAIII, POA, multifactorial: underlying severe systolic CHF, probable PNA based on CXR, elevated wbc, PCT despite no systemic inflammatory response. pt had neg resp PCR from last hospitalization, doesn't have overt sx of PNA. -clinically stable, no respiratory sx, remained afebrile, however still has high WBC, mild PCT -started zosyn to treat as HCAP on admission, continue it for now -trend wbc, PCT, fever curve, awaits BCX x2sets -continue diuresis lasix 60mg iv bid, i/o, daily wt. CXR daily -continue symbicort, alb prn, hold off on steroid as clinically low suspicion for COPD exacerbation. -if pt compensates, get ABG, transfer to [facility] for BiPAP Afib with uncontrolled rate 80-110s, POA, mildly higher side from target today -started coreg3.125mg qd, home dose, will try 6.25 bid given HR today. -metoprolol 5mg iv x3 prn for RVR -continue asa/plavix q2d chronic, stable COPD, as above CKD3, stable, DM, last a1c5.8, will start lisproSS GERD HTN, HLD, continue [id number], hold norvasc given increase of coreg, continue statin Obstructive sleep apnea, consider CPAP dispo:likely 2-3more days given persistent dyspnea, readmission with similar complaints. diet:cardiac dvt ppx:HSQ Full code. Time spent 35min Rossy Manjarrez MD Jun 06, 2016 14:02
[2016-06-06] MEDS: Heparin 5,000 Unit/mL Inj SUBQ SCH (16:12)
[2016-06-06] MEDS: Piperacillin-Tazo 3.375 Gm Inj 3.375 GM in Dextrose 5% Minibag Plus 50 ML IV SCH (20:14)
[2016-06-06] MEDS: Lidocaine Topical 5% Patch TOPICAL SCH (22:51)
[2016-06-07] VITALS (8 sets, daily range): BP systolic 106–134; BP diastolic 64–78; PULSE 77–122; RESP 18–19; O2SAT 93–100
[2016-06-07] MEDS: Heparin 5,000 Unit/mL Inj SUBQ SCH ×3 (00:50→17:05)
[2016-06-07] MEDS: Sodium Chloride LOK Flush 10 mL Syringe IVFLUSH SCH ×3 (00:50→17:05)
--- NOTE | 2016-06-07 01:02 | NUR ---
pain/respiratory/HR Pt c/o 08/26 lower back pain from laying in bed too much. Pt requested lidocaine patch as it worked before. Tylenol given with moderate relief. rec'd an order for Lidocaine patch and was placed to lower back with good relief. Pt stated he's able to stand straight again with less lower back pain. SpO2 in mid to high 90s on RA; denies SOB even with exertion. has rare nonproductive cough. HR Afib between 80s-low 100s, 120s with activity but doesn't sustain.
[2016-06-07] MEDS: Furosemide 10 mg/mL 10 mL Inj IVPUSH SCH ×2 (06:54→17:05)
[2016-06-07 07:30] LABS: BASOPHILS % (AUTO) 0.1 % (0-3); EOSINOPHILS % (AUTO) 3.5 % (0-5); MONOCYTES % (AUTO) 13.6 % (4-12); Mean Corpuscular Hemoglobin 31.5 pg (27.0-35.0); Mean Corpuscular Volume 98.6 fL (81-100); NEUTROPHILS % (AUTO) 74.7 % (40-74); Platelet Count 250 bil/L (150-400)
[2016-06-07] MEDS: Piperacillin-Tazo 3.375 Gm Inj 3.375 GM in Dextrose 5% Minibag Plus 50 ML IV SCH ×2 (08:21→22:08)
[2016-06-07] MEDS: Fluticasone-Salmererol 250-50 Inhaler INHALATION SCH ×2 (08:21→22:08)
--- NOTE | 2016-06-07 09:18 | DRSVH ---
PROCEDURE: X-RAY CHEST, TWO VIEWS ([id number]) INDICATIONS: CHF vs PNA follow up TECHNIQUE: 2 views of the chest were acquired. COMPARISON: [facility], CR, XR CHEST 1VW (PORTABLE), 06/05/2016, 7:47. [facility], CR, XR CHEST 2VW, 01/05/2015, 10:30. FINDINGS: Surgical changes and devices: Right neck surgical clips redemonstrated. Lungs and pleura: Interval decrease in diffuse, widespread bilateral interstitial and patchy air spac e opacities. Small pleural effusions redemonstrated. No pneumothorax. Mediastinum: Mediastinal contours are normal. Heart size is large. Bones and chest wall: No suspicious bony abnormalities. Soft tissues appear unremarkable. IMPRESSION: Resolving edema and/or pneumonia. Dictated by: Nick Gomez [facility] Interpreted: Khushboo Yanes MD on 06/07/2016 at 9:16 Transcribed by: YESI on 06/07/2016 at 9:18 Approved by: Khushboo Yanes MD, PhD on 06/07/2016 at 16:44
--- NOTE | 2016-06-07 12:47 | PCM.PNMED ---
Subjective Date of Service Jun 07, 2016 Subjective pt is feeling better, net 1liters from diuresis, CXR today interval resolution of interstitial markings, remained afebrile, but rate uncontrolled up to 110-120s no palpitation, chest pain, Exam Vital Signs Vital Sign - Last Date Time Temp Pulse Resp B/P Pulse Ox O2 Delivery O2 Flow Rate FiO2 06/07/16 08:54 37.0 96 18 121/69 95 Room Air 06/05/16 11:30 2.00 Intake and Output 06/06/16 06/06/16 06/07/16 Cumulative From/Thru 15:00 23:00 07:00 06/05/16 06:37 - 06/06/16 19:57 Intake Total 1000 ml 786 ml 2933 ml Output Total 1775 ml 1275 ml 3550 ml Balance -775 ml -489 ml -617 ml Intake Oral 1000 ml 786 ml 2383 ml IV Total 550 ml Output Urine Total 1775 ml 1275 ml 3550 ml Exam NAD, comfortably laying down on the bed no JVD, MMM, no LAD tachy irregular, nl s1, s2 no mrg CTAB, no w,c S,ND,NT,normoactive BS+ warm, trace edema, pulses 2/2 on Rt DP IVs and Medications Medications Reviewed: Medications were reviewed in detail Lab and Diagnostics Result Diagram: 06/07/1657 06/07/16556 Cardiac Echo Impressions Echocardiogram Report Name: NOAH FERRARO DStudy Date: 0 05/28/2016 Height: 69 in Hospital Exam Location: [facility] Weight: 170 lb Gender: Male BSA: 1.9 m2 : 1935 Age: 80 yrs BP: 133/77 mmHg Reason For Study: Dyspnea Ordering Physician: HOSPITALIST SVHPerformed By: Sergey Moctezuma Referring Physician: CEZAR MATTSON Interpretation Summary The left ventricle is borderline dilated. The ejection fraction is estimated to be 20-25%. There is moderate to severe global hypokinesis of the left ventricle. There is apical severe hypokinesis. The left atrium is severely dilated. The mitral valve leaflets are moderately calcified. The mitral valve mean gradient is 9 mmHg. There is moderate to severe mitral regurgitation. The aortic valve is moderately calcified. Leaflet mobility is moderate to severely reduced. The calculated aortic valve area is 0.85 cm2. There is mild aortic regurgitation. There is moderate tricuspid regurgitation. The right ventricular systolic pressure is estimated at 63 mmHg assuming a right atrial pressure of 15 mm Hg. There are moderate-sized bilateral pleural effusions noted. Compared to prior echo report on 2015, changes are noted. Additional Diagnostics DIAGNOSTIC CARDIAC CATHETERIZATION PATIENT: NOAH FERRARO : 1935 MR#: [id number] ADMIT: 06/05/2016 JOB ID: [id number] SERVICE DATE: 06/05/2016 PATIENT PROFILE: The patient is an 80-year-old male with a history of aortic stenosis, hypertension, hyperlipidemia, diabetes, and peripheral vascular disease. The patient was hospitalized last week with progressive dyspnea. He also has chronic kidney disease stage 4. PROCEDURE: 1. Right heart catheterization. 2. Retrograde left heart catheterization. 3. Selective coronary angiography. VASCULAR CLOSURE DEVICE: None. COMPLICATION: None. METHOD: Combined right and left heart catheterization was performed from the right groin under 1% lidocaine local anesthesia using a 6-Slovenian and a 7-Slovenian sheath. It was somewhat difficult to obtain arterial access and advance an 0.035 wire into the abdominal aorta due to heavily calcified iliac arteries. This was performed with a Glidewire and a 5-Slovenian dilator and placing a 25 cm 6-Slovenian sheath. A 7-Slovenian [place]-Sobeida catheter was used for the right heart pressures. Cardiac output was determined by both thermodilution technique and DANNI method. Selective coronary angiogram was performed in multiple projections, including cranial and caudal angulations with hand injected contrast via JL4 and 3DRC catheters. Following sheath removal, hemostasis was achieved by manual compression. The patient tolerated procedure well. He was transferred to [facility] in good condition. TOTAL CONTRAST USED: 40 cc. FLUOROSCOPY TIME: 3.6 minutes. RESULTS: 1. Mean right atrial pressure is 3 mmHg. Right ventricular pressure is 45/0 mmHg. Pulmonary artery pressure is 46/12 mmHg. 2. Mean pulmonary capillary wedge pressure is 20 mmHg with a V wave of 30 mmHg. 3. Arterial oxygen saturation is 93%. Mixed venous saturation is 54%. 4. Cardiac output by the DANNI method is 4.86 L/minute with an index of 2.56 L/minute/meter squared. 5. Cardiac output by the thermodilution technique is 4.51 L/minute with an index of 2.37 L/minute/meter squared. 6. Selective coronary angiogram a. The coronary arteries are heavily calcified. b. Left main coronary artery is short and has eccentric and heavily calcified 30% stenosis. c. The left anterior descending artery is transapical and has diffuse minor irregularity disease. d. The dominant circumflex artery has diffuse disease and eccentric 60% stenosis in the distal portion. e. The nondominant right coronary artery has minor disease. CONCLUSIONS: 1. Moderate pulmonary hypertension. 2. Cardiac index is 2.4 L/minute/meter squared. 3. Mean pulmonary capillary wedge pressure is 20 mmHg with a V wave of 30 mmHg. 4. Heavily calcified coronary artery with nonhemodynamic significant stenosis. Merle Russell MD 06/05/16 0989 <Electronically signed by Merle Russell MD> 06/05/16 1211 Assessment & Plan acute, active persistent MICHELLE, NYHAIII, POA, multifactorial: underlying severe systolic acute on chronic CHF, probable PNA based on CXR, elevated wbc, PCT despite no systemic inflammatory response. pt had neg resp PCR from last hospitalization, doesn't have overt sx of PNA. -clinically stable, no respiratory sx, remained afebrile, WBC, PCT trending down. -started zosyn to treat as HCAP on admission, continue it for now -trend wbc, PCT, fever curve, awaits BCX x2sets -continue diuresis lasix 60mg iv bid, had good response, i/o, daily wt. CXR daily -continue symbicort, alb prn, hold off on steroid as clinically low suspicion for COPD exacerbation. -if pt compensates, get ABG, transfer to [facility] for BiPAP persistent Afib, POA, with rate still uncontrolled 80-120s, -s/p coreg3.125mg qd, home dose, increased to 6.25 bid 06/06, will add digoxin given severe today -metoprolol 5mg iv x3 prn for RVR -continue asa/plavix q2d Severe systolic acute on chronic CHF, POA, last TTE 05/28 showed EF 20-25%, multifocal WMA. Cath 06/05 showed no lesions for PCI, CI2.4, moderate pHTN -will maximize medical tx while inhouse. -continue diuresis as above -continue BB, ARB, added aldactone 25mg today -if pt fails with diuretics, will consult cardiology for possible inotropes, chronic, stable COPD, as above CKD3, stable, DM, last a1c5.8,continue lisproSS GERD HTN, HLD, continue [id number], hold norvasc given increase of coreg, continue statin Obstructive sleep apnea, consider CPAP dispo:likely 2-3more days given persistent dyspnea, readmission with similar complaints. diet:cardiac dvt ppx:HSQ Full code. Time spent 35min Rossy Manjarrez MD Jun 07, 2016 12:47
--- NOTE | 2016-06-07 15:27 | NUR ---
Social Work: Initial Assessment Data: Pt is an 80 y/o male admitted for aortic stenosis. Pt's PCP is Dr Aceves, pt's insurance si Medicare with [employer] supp. EMR reviewed, readmit score not listed. PAYROLL CONSULTANT met with pt at bedside, role explained. Pt states that he lives on [address] in a two story homewith his significant other where he uses no DME. Pt states he drives, has no hx of HH or SNF, no LTC or VA benefits, and is not a caregiver. Pt states that he does not have AD/DPOA, declined info. Pt states his significant other will drive him home. Pt has been up and independent in the room and halls. No d/c planning needs anticipated at this time. PAYROLL CONSULTANT will continue to follow if needs arise. Assessment: Pt who is independent at baseline. Plan: Pt will d/c home via POV when medically stable. No d/c planning needs anticipated at this time. PAYROLL CONSULTANT will continue to follow if needs arise. AKIRA Da Silva Addendum: 06/07/16 at 1529 by DAVID WEINBERG Amended: Links added.
[2016-06-07] MEDS: Lidocaine Topical 5% Patch TOPICAL SCH (22:08)
[2016-06-08] MEDS: Sodium Chloride LOK Flush 10 mL Syringe IVFLUSH SCH ×2 (00:50→08:49)
[2016-06-08] MEDS: Heparin 5,000 Unit/mL Inj SUBQ SCH ×2 (00:50→08:49)
[2016-06-08 00:52] VITALS: BP 112/66; PULSE 52; RESP 18; O2SAT 95
[2016-06-08 04:57] VITALS: BP 114/50; PULSE 88; RESP 18; O2SAT 94
[2016-06-08 05:13] LABS: BASOPHILS % (AUTO) 0.1 % (0-3); EOSINOPHILS % (AUTO) 4.2 % (0-5); MONOCYTES % (AUTO) 11.6 % (4-12); Mean Corpuscular Hemoglobin 30.9 pg (27.0-35.0); Mean Corpuscular Volume 98.5 fL (81-100)
[2016-06-08 05:30] LABS: Platelet Count 204 bil/L (150-400)
[2016-06-08 05:37] LABS: Magnesium 2.1 mg/dL (1.6-2.6); Phosphorus 5.2 mg/dL (2.5-4.9)
[2016-06-08] MEDS: Furosemide 10 mg/mL 10 mL Inj IVPUSH SCH (05:56)
[2016-06-08 06:01] VITALS: PULSE 76
--- NOTE | 2016-06-08 06:25 | NUR ---
Pain Patient c/o back pain medicated with scheduled tramadol and lidocaine patch. 30 minutes later patient reports improvement of pain. patient slept throughout the night. vital stable. patient states "i am going home today, i don't care what they say"
[2016-06-08 08:00] VITALS: PULSE 101
[2016-06-08] MEDS: Piperacillin-Tazo 3.375 Gm Inj 3.375 GM in Dextrose 5% Minibag Plus 50 ML IV SCH (08:49)
[2016-06-08] MEDS: Fluticasone-Salmererol 250-50 Inhaler INHALATION SCH (08:49)
[2016-06-08 08:54] VITALS: BP 124/63; PULSE 60; RESP 19; O2SAT 95
[2016-06-08] MEDS ORDERED: FURO40TA4 PO (09:31)
[2016-06-08] MEDS ORDERED: CARV6.252 PO (09:31)
[2016-06-08] MEDS ORDERED: SPIR25TA PO (09:31)
[2016-06-08] MEDS ORDERED: LAN125 PO (09:31)
--- NOTE | 2016-06-08 10:08 | PCM.DIMED ---
Discharge Instructions Date of Service Jun 08, 2016 Dates of Hospitalization Jun 05, 2016 at 15:08 Discharge Diagnosis Discharge Diagnosis probable pneumonia acute systolic heart failure Medication Instructions New regimen for heart failure/atrial fibrillation Aldactone 25mg daily Digoxin 0.125mg every other day Carvedilol was increased to 12.5mg twice a day Furosemide was increased to 60mg daily Please note that Digoxin have narrow treatment window, which means you need to check the level in 2weeks in the clinic Diet Low fat, Low Sodium, Heart Healthy Activity No restrictions Call your provider Shortness of breath, Chest pain Patient Instructions You were hospitalized with concern for pneumonia after cardiac catheterization, it is likely that you have heart failure and possible pneumonia causing your breathing problems. You received diuretics and new regimen for your heart failure. Since your heart rate was not controlled, new medicine was also started. Please note that you need to have close follow up with in 1-2week given new regimen started in the hospital if you notice more shortness of breath, chest pain, lightheadedness, yellow vision, please return to hospital Follow-up Provider: Merle Russell MD Follow-up with PCP in: 2 weeks Rossy Manjarrez MD Jun 08, 2016 10:08
--- NOTE | 2016-06-08 11:22 | NUR ---
Social Work: Discharge Data: Pt is on day 3 of hospitalization. EMR reviewed. D/C orders are in. No d/c planning needs at this time. TURNER SPLITTER MACHINE OPERATOR met with pt and spouse, no needs stated. TURNER SPLITTER MACHINE OPERATOR will continue to follow if needs arise. Assessment: Pt who is independent at baseline. Plan: Pt will d/c home via POV today with family. No d/c planning needs at this time. TURNER SPLITTER MACHINE OPERATOR met with pt and spouse, no needs stated. TURNER SPLITTER MACHINE OPERATOR will continue to follow if needs arise. AKIRA Da Silva
--- NOTE | 2016-06-08 11:22 | NUR ---
MOSHE signed AKIRA Da Silva
--- NOTE | 2016-06-08 13:06 | NUR ---
Discharge Pt discharged at this time. All belongings gathered and returned to pt. VSS, no complains of increased pain or SOB. Hard copy of new scripts given to pt to fill. IV D/Cd intact, tele monitor removed. Discharge packet printed and reviewed with pt. [facility] [place] [facility] [place] FABIANA in wheelchair to front entrance. Pt to be transported home in private vehicle driven by spouse.
--- NOTE | 2016-06-08 17:01 | PCM.DC.MED ---
Discharge Summary Date of Service Jun 08, 2016 Dates of Hospitalization Date of Hospital Admission Jun 05, 2016 at 15:08 Date of Discharge: Jun 08, 2016 Providers: Admitting Physician: Merle Russell MD Primary Care Physician: New Aceves MD Attending Physician: Merle Russell MD Diagnosis at Time of Discharge Diagnosis at Time of Discharge acute problems, persistent MICHELLE, likely due to probable pneumonia, acute on chronic systolic heart failure persistent Afib, chronic problems COPD, CKD3, DM, GERD HTN, HLD, Obstructive sleep apnea Procedures XRay, CTs & MRIs PROCEDURE: X-RAY CHEST, TWO VIEWS ([id number]) INDICATIONS: CHF vs PNA follow up TECHNIQUE: 2 views of the chest were acquired. COMPARISON: [facility], CR, XR CHEST 1VW (PORTABLE), 06/05/2016, 7: 47. [facility], CR, XR CHEST 2VW, 01/05/2015, 10:30. FINDINGS: Surgical changes and devices: Right neck surgical clips redemonstrated. Lungs and pleura: Interval decrease in diffuse, widespread bilateral interstitial and patchy air space opacities. Small pleural effusions redemonstrated. No pneumothorax. Mediastinum: Mediastinal contours are normal. Heart size is large. Bones and chest wall: No suspicious bony abnormalities. Soft tissues appear unremarkable. IMPRESSION: Resolving edema and/or pneumonia. Dictated by: Nick Gomez [facility] Interpreted: Khushboo Yanes MD on 06/07/2016 at 9:16 Transcribed by: YESI on 06/07/2016 at 9:18 Approved by: Khushboo Yanes MD, PhD on 06/07/2016 at 16:44 PROCEDURE: X-RAY CHEST ONE VIEW, PORTABLE ([id number]) INDICATIONS: ELEVATED WBC'S TECHNIQUE: One view of the chest was acquired. COMPARISON: [facility], CR, XR CHEST 1VW (PORTABLE), 05/30/2016, 10: 27. [facility], CR, XR CHEST 1VW, 05/29/2016, 8:02. FINDINGS: Surgical changes and devices: None. Lungs and pleura: No pleural effusions or pneumothorax. Lungs are abnormal with patchy bilateral pneumonia, moderately severe overall in slightly greater on the left than the right.. Mediastinum: Mediastinal contours appear normal. Heart size is difficult to accurately assess due to adjacent relatively dense lung parenchyma but likely is moderately enlarged.. Bones and chest wall: No suspicious bony lesions. Overlying soft tissues appear unremarkable. IMPRESSION: Patchy bilateral pneumonia pattern, moderately severe, left greater than right. Moderate cardiomegaly. Dictated by: Jeb Wilkins M.D. on 06/05/2016 at 8:51 Approved by: Jeb Wilkins M.D. on 06/05/2016 at 8:51 Cardiac Echo Impression Echocardiogram Report Name: NOAH FERRARO DStudy Date: 05/28/2016 Height: 69 in Hospital Exam Location: [facility] Weight: 170 lb Gender: Male BSA: 1.9 m2 : 1935 Age: 80 yrs BP: 133/77 mmHg Reason For Study: Dyspnea Ordering Physician: HOSPITALIST SVHPerformed By: Sergey Moctezuma Referring Physician: CEZAR MATTSON Interpretation Summary The left ventricle is borderline dilated. The ejection fraction is estimated to be 20-25%. There is moderate to severe global hypokinesis of the left ventricle. There is apical severe hypokinesis. The left atrium is severely dilated. The mitral valve leaflets are moderately calcified. The mitral valve mean gradient is 9 mmHg. There is moderate to severe mitral regurgitation. The aortic valve is moderately calcified. Leaflet mobility is moderate to severely reduced. The calculated aortic valve area is 0.85 cm2. There is mild aortic regurgitation. There is moderate tricuspid regurgitation. The right ventricular systolic pressure is estimated at 63 mmHg assuming a right atrial pressure of 15 mm Hg. There are moderate-sized bilateral pleural effusions noted. Compared to prior echo report on 2015, changes are noted. Other Diagnostics DIAGNOSTIC CARDIAC CATHETERIZATION PATIENT: NOAH FERRARO : 1935 MR#: [id number] ADMIT: 06/05/2016 JOB ID: [id number] SERVICE DATE: 06/05/2016 PATIENT PROFILE: The patient is an 80-year-old male with a history of aortic stenosis, hypertension, hyperlipidemia, diabetes, and peripheral vascular disease. The patient was hospitalized last week with progressive dyspnea. He also has chronic kidney disease stage 4. PROCEDURE: 1. Right heart catheterization. 2. Retrograde left heart catheterization. 3. Selective coronary angiography. VASCULAR CLOSURE DEVICE: None. COMPLICATION: None. METHOD: Combined right and left heart catheterization was performed from the right groin under 1% lidocaine local anesthesia using a 6-Swiss and a 7-Swiss sheath. It was somewhat difficult to obtain arterial access and advance an 0.035 wire into the abdominal aorta due to heavily calcified iliac arteries. This was performed with a Glidewire and a 5-Swiss dilator and placing a 25 cm 6-Swiss sheath. A 7-Swiss Jackson-Sobeida catheter was used for the right heart pressures. Cardiac output was determined by both thermodilution technique and DANNI method. Selective coronary angiogram was performed in multiple projections, including cranial and caudal angulations with hand injected contrast via JL4 and 3DRC catheters. Following sheath removal, hemostasis was achieved by manual compression. The patient tolerated procedure well. He was transferred to [facility] in good condition. TOTAL CONTRAST USED: 40 cc. FLUOROSCOPY TIME: 3.6 minutes. RESULTS: 1. Mean right atrial pressure is 3 mmHg. Right ventricular pressure is 45/0 mmHg. Pulmonary artery pressure is 46/12 mmHg. 2. Mean pulmonary capillary wedge pressure is 20 mmHg with a V wave of 30 mmHg. 3. Arterial oxygen saturation is 93%. Mixed venous saturation is 54%. 4. Cardiac output by the DANNI method is 4.86 L/minute with an index of 2.56 L/minute/meter squared. 5. Cardiac output by the thermodilution technique is 4.51 L/minute with an index of 2.37 L/minute/meter squared. 6. Selective coronary angiogram a. The coronary arteries are heavily calcified. b. Left main coronary artery is short and has eccentric and heavily calcified 30% stenosis. c. The left anterior descending artery is transapical and has diffuse minor irregularity disease. d. The dominant circumflex artery has diffuse disease and eccentric 60% stenosis in the distal portion. e. The nondominant right coronary artery has minor disease. CONCLUSIONS: 1. Moderate pulmonary hypertension. 2. Cardiac index is 2.4 L/minute/meter squared. 3. Mean pulmonary capillary wedge pressure is 20 mmHg with a V wave of 30 mmHg. 4. Heavily calcified coronary artery with nonhemodynamic significant stenosis. Merle Russell MD 06/05/16 [id number] <Electronically signed by Merle Russell MD> 06/05/16 1211 Brief History 80yo M with CAD, HTN, HLD, DM, PVD, recent hospitalization with ADHF+/-COPD exacerbation05/28- sent from [facility] based on CXR showing "pneumonia" directly admitted to [facility] by When patient was admitted to hospital, pt had MICHELLE for 4days, placed on BiPAP, iv lasix 40, 60mg, also treated with frequent nebs, steroid based on significant smoking hx.Patient was discharged with Symbicort, lasix, coreg. TTE 05/28 showed significant LV dysfunction EF25%, severe pHTN, severe MR, multifocal WMA. Patient was followed in the clinic 06/04 yesterday, underwent elective LHC/RHC today by which showed Moderate pulmonary hypertension, severe systolic dysfunction CI 2.4, heavily calcified nonobstructive CAD. Repeat CXR today showed probable PNA with bilateral patch infiltrate. Therefore , patient was admitted. pt stated that since he wad d/noelle, he still had SOB with minimal exertion at home, not at rest, which was significantly better than when he originally came on 05/28, his MICHELLE hasn't changed since d/c, not worse or better. He has been using Symbicort, used rescue inhaler once last night, both of which seemed helpful for his breathing but not significantly different. Pt denied any cough, sputum, fever, chills, chest pain, palpitation. cannot tolerate supine position chronically using 1pillow, denied orthopnea. PNA, woke up at night for urination. denied further wt gain, acute chg of exercise tolerance since d/c Initial VS at [facility] today morning, 110/70, 80, 13, 100% on RA, became tachycardic to 113 in PM. remained HD stable. Upon interview, pt was breathing comfortably, denied SOB, maintained absolute bed rest as directed. Bicarb gtt was running from [facility] [employer] [facility]. Hospital Course acute problems persistent MICHELLE, NYHAII-III, POA, multifactorial: underlying severe systolic acute on chronic CHF, probable PNA based on CXR, elevated wbc, PCT despite no systemic inflammatory response. pt had neg resp PCR from last hospitalization, doesn't have overt sx of PNA. pt was empirically started on zosyn. wbc/PCT trended down, didn't show any signs of PNA clinically. Pt also started on increased diuretics, 60mg iv bid, seemed responding, with net balance 1liters out. Follow up CXR showed interval improvement of edema.In general, dyspnea was improved with diuresis, abx, didn't require O2 supplement. Pt wsa stable for d/ c to home. persistent Afib, pt showed uncontrolled rate with stable HD, ratel uncontrolled 80-120s, coreg was increased from 3.125mg qd, home dose, increased to 6.25 bid , added digoxin 0.125mg, rate was better controlled to 60s. recommended to continue digoxin and increased dose of coreg. pt was recommended to chekc dig level in 10-14days in the clinic. pt continued asa/plavix q2d, it was unclear why pt was on DAPT. Severe systolic acute on chronic CHF, POA, last TTE 05/28 showed EF 20-25%, multifocal WMA. Cath 06/05 showed no lesions for PCI, cardiac index 2.4, moderate pHTN. pt was continued BB, ARB, added aldactone 25mg. pt tolerated well. chronic problems COPD, stable on home neb tx CKD3, DM, last a1c5.8,continued lisproSS GERD HTN, HLD, continued [id number], held norvasc given increase of coreg, continued statin Obstructive sleep apnea, stable Exam Vital Signs (Last) Date Time Temp Pulse Resp B/P Pulse Ox O2 Delivery O2 Flow Rate FiO2 06/08/16 08:54 36.8 60 19 124/63 95 Room Air 06/05/16 11:30 2.00 Exam NAD, comfortably laying down on the bed no JVD, MMM, no LAD tachy irregular, nl s1, s2 no mrg CTAB, no w,c S,ND,NT,normoactive BS+ warm, trace edema, pulses 2/2 on Rt DP Test 06/05/16 08:00 06/07/16 05:57 06/08/16 04:55 Urine Color Yellow (YELLOW) Urine Appearance Clear (CLEAR,HAZY) Urine pH 5.5 (5.0-8.0) Urine Specific [place] 1.010 (1.003-1.035) Urine Protein Tracemg/dL (NEG,TRACE) Urine Glucose (UA) Negativemg/dL (NEGATIVE) Urine Ketones Negativemg/dL (NEGATIVE) Urine Occult Blood Negative (NEGATIVE) Urine Nitrite Negative (NEGATIVE) Urine Bilirubin Negative (NEGATIVE) Urine Urobilinogen Normalmg/dL (NORMAL) Urine Leukocyte Esterase Negative (NEGATIVE) Urine RBC 0-2/hpf (0-2) Urine WBC 0-5/hpf (0-5) Urine Epithelial Cells Occasional/hpf (NONE-MOD) Urine Crystals None seen (NONE SEEN) Urine Bacteria None/hpf (NONE-FEW) Urine Hyaline Casts None/lpf (NONE) Urine Granular Casts None seen (NONE SEEN) Urine Waxy Casts None seen (NONE SEEN) Urine Red Blood Cell Casts None seen (NONE SEEN) Urine White Blood Cell Casts None seen (NONE SEEN) Urine Mucus Present (None Seen) Urine Trichomonas None seen (NONE SEEN) Urine Yeast None (NONE SEEN) Urinalysis Comment None Urine Culture Reflexed Not indicated Urine Legionella pneumophilia Ag Negative (Negative) Procalcitonin 0.15ng/mL (0.00-0.08) White Blood Count 12.0th/mm3 (3.8-10.1) Red Blood Count 2.72mil/mm3 (4.40-5.80) Hemoglobin 8.4g/dL (13.8-17.2) Hematocrit 26.8% (41.0-50.0) Mean Corpuscular Volume 98.5fL (81-100) Mean Corpuscular Hemoglobin 30.9pg (27.0-35.0) Mean Corpuscular Hemoglobin Concent 31.3% (32.0-37.0) Red Cell Distribution Width 14.4% (12.3-15.4) Platelet Count 204bil/L (150-400) Neutrophils (%) (Auto) 75.0% (40-74) Lymphocytes (%) (Auto) 8.9% (14-46) Monocytes (%) (Auto) 11.6% (4-12) Eosinophils (%) (Auto) 4.2% (0-5) Basophils (%) (Auto) 0.1% (0-3) Sodium Level 141mEq/L (134-144) Potassium Level 3.6mEq/L (3.5-5.2) Chloride Level 102mEq/L (97-108) Carbon Dioxide Level 22mmol/L (18-29) Blood Urea Nitrogen 68mg/dL (8-27) Creatinine 2.69mg/dL (0.76-1.27) Estimat Glomerular Filtration Rate 24mL/min (>59) Glucose Level 134mg/dL (60-99) Calcium Level 8.2mg/dL (8.5-10.1) Phosphorus Level 5.2mg/dL (2.5-4.9) Magnesium Level 2.1mg/dL (1.6-2.6) Total Bilirubin 0.3mg/dL (0.0-1.2) Aspartate Amino Transf (AST/SGOT) 14U/L (0-50) Alanine Aminotransferase (ALT/SGPT) 12U/L (0-44) Alkaline Phosphatase 42U/L (25-160) Total Protein 5.3g/dL (6.4-8.4) Albumin 3.4g/dL (3.4-5.0) Discharge Medications Discharge Medications Albuterol HFA (Proair HFA) 8.5 Gm Hfa.aer.ad 2 PUFFS INHALATION Q4H Prescribed by: CEZAR MATTSON MD Amlodipine (Amlodipine) 5 Mg Tablet 5 MG PO BID (Reported) Aspirin Chew (Aspirin Chew) 81 Mg Tab.chew 81 MG PO every other day (Reported) Atorvastatin Calcium (Atorvastatin Calcium) 40 Mg Tablet 40 MG PO DAILY ( Reported) Budesonide/Formoterol 160-4.5 mcg Inh (Symbicort 160-4.5 mcg Inh) 120 Puff Inhaler 1 PUFF INHALATION BID (Reported) Calcitriol (Rocaltrol) 0.25 Mcg Capsule 0.25 MCG PO every other day (Reported) Carvedilol (Carvedilol) 6.25 Mg Tablet 12.5 MG PO BIDWM Prescribed by: ROSSY MONTOYA MD Cholecalciferol (Vitamin D3) (Vitamin D3) 2,000 Unit Tablet 2,000 UNIT PO DAILY (Reported) Clopidogrel (Clopidogrel) 75 Mg Tablet 75 MG PO every other day (Reported) Digoxin (Lanoxin) 0.125 Mg Tablet 0.125 MG PO Q2DAY Prescribed by: ROSSY MONTOYA MD Ferrous Sulfate (Iron) 325 Mg Capsule.er 325 MG PO DAILY (Reported) Furosemide (Furosemide) 40 Mg Tablet 60 MG PO DAILY Prescribed by: ROSSY MONTOYA MD Losartan Potassium (Losartan Potassium) 25 Mg Tablet 25 MG PO DAILY (Reported) Spironolactone (Aldactone) 25 Mg Tablet 25 MG PO DAILY Prescribed by: ROSSY MONTOYA MD Additional med instructions New regimen for heart failure/atrial fibrillation Aldactone 25mg daily Digoxin 0.125mg every other day Carvedilol was increased to 12.5mg twice a day Furosemide was increased to 60mg daily Please note that Digoxin have narrow treatment window, which means you need to check the level in 2weeks in the clinic Followup Plan Disposition: home Discharge Diet: Low fat, Low Sodium, Heart Healthy Discharge Activity: No restrictions Patient Instructions You were hospitalized with concern for pneumonia after cardiac catheterization, it is likely that you have heart failure and possible pneumonia causing your breathing problems. You received diuretics and new regimen for your heart failure. Since your heart rate was not controlled, new medicine was also started. Please note that you need to have close follow up with in 1-2week given new regimen started in the hospital if you notice more shortness of breath, chest pain, lightheadedness, yellow vision, please return to hospital Follow-up Provider: Merle Russell MD Follow-up with PCP in: 2 weeks Time spent 65min Rossy Montoya MD Jun 08, 2016 17:01
== END 2016-06-08 13:15 | disposition home or self-care (01) | DRG 193 ==
LOC: SOUO 00:52 → MPC 15:08 → SOUO 15:08 → UNDOFXSDCRRACCOM 22:18
PROVIDERS: ADMIT Internal Medicine Interventional Cardiology; ATTEND Internal Medicine Interventional Cardiology
PROC: B2111ZZ Fluoroscopy of Multiple Coronary Arteries using Low Osmolar Contrast (ICD-10-PCS; principal; 2016-06-05)
PROC: 4A023N6 Measurement of Cardiac Sampling and Pressure, Right Heart, Percutaneous Approach (ICD-10-PCS; 2016-06-05)
DX: J18.9 Pneumonia, unspecified organism (principal); I50.23 Acute on chronic systolic (congestive) heart failure; I48.1 Persistent atrial fibrillation; I27.2 Other secondary pulmonary hypertension; I25.10 Atherosclerotic heart disease of native coronary artery without angina pectoris; I25.84 Coronary atherosclerosis due to calcified coronary lesion; J44.9 Chronic obstructive pulmonary disease, unspecified; I12.9 Hypertensive chronic kidney disease with stage 1 through stage 4 chronic kidney disease, or unspecified chronic kidney disease; E11.22 Type 2 diabetes mellitus with diabetic chronic kidney disease; N18.3 Chronic kidney disease, stage 3 (moderate); K21.9 Gastro-esophageal reflux disease without esophagitis; G47.33 Obstructive sleep apnea (adult) (pediatric); E78.5 Hyperlipidemia, unspecified; Z79.82 Long term (current) use of aspirin; Z95.5 Presence of coronary angioplasty implant and graft; Z87.891 Personal history of nicotine dependence; Z79.02 Long term (current) use of antithrombotics/antiplatelets

== ENCOUNTER → 2016-10-22 | Day surgery (SDC) | payer MEDICARE, OTHER ==
[2016-10-22] VITALS (8 sets, daily range): BP systolic 136–163; BP diastolic 50–109; PULSE 51–91; RESP 11–16; O2SAT 97–99
[~2016-10-22] VITALS: Ht 175.3 cm; Wt 74.0 kg
[~2016-10-22] MED LIST changes: -ALBU8.5H2 INHALATION; +Atropine 1 mg/10 mL (Code) Syringe ONE; +CARV3.122 PO; -CARV6.25 PO; +CHOL200047 PO; -CLOP75TA28 PO; +Flumazenil 0.1 mg/mL 5 mL Inj IV ONE; -HYDR-3938 PO; -ISOS20TA7 PO; +Methohexital 10 mg/mL 50 mL Inj IV ONE; +SPIR25TA PO; -SYMINH INHALATION; +WARF2.5T82 PO
--- NOTE | 2016-10-22 09:10 | NUR ---
ADMITTED TO [facility]. DISCUSSED PLAN OF CARE WITH PT AND . SEE ADMIT AND FLOW SHEET
[2016-10-22 09:34] LABS: BASOPHILS % (AUTO) 0.4 % (0-3); EOSINOPHILS % (AUTO) 7.8 % (0-5); MONOCYTES % (AUTO) 9.6 % (4-12); Mean Corpuscular Hemoglobin 30.9 pg (27.0-35.0); Mean Corpuscular Volume 91.2 fL (81-100); NEUTROPHILS % (AUTO) 68.7 % (40-74); Platelet Count 279 bil/L (150-400)
--- NOTE | 2016-10-22 10:27 | NUR ---
Vipul for cardioversion no respiratory issues noted
--- NOTE | 2016-10-22 10:41 | OP ---
[address] [address] OPERATIVE REPORT PATIENT: NOHA FERRARO : 1935 MR#: [id number] ADMIT: 10/22/2016 JOB ID: [id number] DATE OF SURGERY: 10/22/2016 SURGEON: Merle Russell M.D. PREOPERATIVE DIAGNOSIS(ES): Atrial fibrillation. POSTOPERATIVE DIAGNOSIS(ES): Atrial fibrillation. PROCEDURE: Synchronous cardioversion. COMPLICATIONS: None. METHOD: Synchronous cardioversion was performed in the [facility] under IV anesthesia with 0.5 mg of Versed and 35 mg of Brevital. It was delivered with biphasic 120 joules. The atrial fibrillation was successfully converted to normal sinus rhythm.
--- NOTE | 2016-10-22 11:15 | NUR ---
DISCHARGE NOTE UP IN ROOM, NO COMPLAINTS. INSTRUCTIONS GIVEN. HOME
== END | disposition home or self-care (01) ==
LOC: SOUO 00:26
PROVIDERS: ATTEND Internal Medicine Interventional Cardiology
DX: I48.91 Unspecified atrial fibrillation (principal); I50.9 Heart failure, unspecified; I25.10 Atherosclerotic heart disease of native coronary artery without angina pectoris; I65.22 Occlusion and stenosis of left carotid artery; E78.5 Hyperlipidemia, unspecified; I12.9 Hypertensive chronic kidney disease with stage 1 through stage 4 chronic kidney disease, or unspecified chronic kidney disease; N18.4 Chronic kidney disease, stage 4 (severe); Z87.891 Personal history of nicotine dependence; Z95.2 Presence of prosthetic heart valve; Z95.5 Presence of coronary angioplasty implant and graft
CPT/HCPCS: 36415; 80048; 85025; 92960; 93005; 94799; 99152; J2250; J7030